=== PATIENT | female | born 1965 | race Caucasian/White ===

== ENCOUNTER 2017-11-07 00:52 | Observation (INO) | payer OTHER ==
[2017-11-07] MEDS ORDERED: Sodium Chloride 0.9% 10 ML Syringe FLUSH PRN (01:13)
[2017-11-07] MEDS ORDERED: Sodium Chloride 0.9% 1,000 ML IV STA (01:13)
[2017-11-07] MEDS ORDERED: Ondansetron 4 MG/2 ML SDV IVPUSH ONE ×2 (01:15→02:05)
[2017-11-07] MEDS ORDERED: HYDROmorphone 0.5 MG/0.5 ML SYRINGE IVPUSH ONE ×2 (01:15→04:03)
[2017-11-07] MEDS ORDERED: Promethazine 25 MG in Sodium Chloride 0.9% 50 ML IV ONE (02:25)
--- NOTE | 2017-11-07 02:54 | EDM.PDOC ---
ED HPI GENERAL MEDICAL PROBLEM - General Chief Complaint: Abdominal Pain Stated Complaint: ABDOMINAL PAIN Time Seen by Provider: 11/07/17 01:09 Source of Information: Reports: Patient, Family History Limitations: Reports: No Limitations - History of Present Illness INITIAL COMMENTS - FREE TEXT/NARRATIVE: The patient presents with lower abdominal pain. This started about 6 hours before arrival. The pain has increased. She has nausea and vomiting and she cannot keep anything down. She may have had a little diarrhea. She as no fever or chills. She has no chest pain or shortness of breath. She has no history of surgeries. She still has her appendix and gallbladder. She did not eat any bad food that she knows of and she has not been around anyone who is sick. Onset: Gradual Duration: Hour(s): (6) Location: Reports: Abdomen Quality: Reports: Sharp Severity: Severe Improves with: Reports: None Worsens with: Reports: None Associated Symptoms: Reports: Nausea/Vomiting. Denies: Chest Pain, Fever/Chills , Headaches, Shortness of Breath Bilateral Lower Abdomen Pain Score (Numeric/FACES): 8 - Related Data Allergies Allergy/AdvReac Type Severity Reaction Status Date / Time No Known Allergies Allergy Verified 11/07/17 00:57 Home Meds: Home Meds FLUoxetine HCl [Fluoxetine] 20 mg PO DAILY 11/07/17 [History] Past Medical History Gastrointestinal History: Reports: Other (See Below) Other Gastrointestinal History: "colon infection" Social & Family History - Tobacco Use Smoking Status *Q: Never Smoker - Caffeine Use Caffeine Use: Reports: Coffee - Recreational Drug Use Recreational Drug Use: No ED ROS GENERAL - Review of Systems Review Of Systems: See Below Constitutional: Reports: No Symptoms, Weight Gain Respiratory: Reports: No Symptoms Cardiovascular: Reports: No Symptoms Endocrine: Reports: No Symptoms GI/Abdominal: Reports: Abdominal Pain, Diarrhea, Nausea, Vomiting : Reports: No Symptoms Musculoskeletal: Reports: No Symptoms ED EXAM, GI/ABD - Physical Exam Exam: See Below Exam Limited By: No Limitations General Appearance: Alert, Moderate Distress Ears: Normal External Exam Nose: Normal Inspection Head: Atraumatic, Normocephalic Neck: Normal Inspection Respiratory/Chest: No Respiratory Distress, Lungs Clear, Normal Breath Sounds Cardiovascular: Regular Rate, Rhythm, No Edema, No Murmur GI/Abdominal Exam: Soft, No Organomegaly, No Mass, Tender (Moderate tenderness to the lower abdomen) Course - Vital Signs Last Recorded V/S: Last Vital Signs Temp 97.8 F 11/07/17 00:58 Pulse 67 11/07/17 00:58 Resp 20 11/07/17 00:58 BP 157/87 H 11/07/17 00:58 Pulse Ox 100 11/07/17 00:58 - Orders/Labs/Meds Orders: Active Orders 24 hr Category Date Time Status Peripheral IV Care [RC] . DIRECTED Care 11/07/17 01:13 Active Abdomen Pelvis w Cont [CT] Stat Exams 11/07/17 01:13 Taken UA W/MICROSCOPIC [URIN] Stat Lab 11/07/17 01:50 Ordered Sodium Chloride 0.9% [Saline Flush] Med 11/07/17 01:13 Active 10 ml FLUSH ASDIRECTED PRN cefOXitin [Mefoxin in Dextrose,Iso-Osm 2 GM/50 ML] 2 gm Med 11/07/17 04:38 Ordered Premix Bag 1 bag IV ONETIME ED Antiemetic Medication Reflex [OM.PC] Stat Oth 11/07/17 01:13 Ordered Peripheral IV Insertion Adult [OM.PC] Stat Oth 11/07/17 01:13 Ordered Medication Orders Sodium Chloride (Saline Flush) 10 ml FLUSH ASDIRECTED PRN PRN Reason: Keep Vein Open Last Admin: 11/07/17 01:22 Dose: 10 ml Labs: Laboratory Tests 11/07/17 11/07/17 11/07/17 Range/Units 01:00 01:00 01:50 WBC 17.14 H (3.98-10.04) K/mm3 RBC 4.44 (3.98-5.22) M/mm3 Hgb 13.8 (11.2-15.7) gm/L Hct 40.0 (34.1-44.9) % MCV 90.1 (79.4-94.8) fl MCH 31.1 (25.6-32.2) pg MCHC 34.5 (32.2-35.5) g/dl RDW Std Deviation 41.5 (36.4-46.3) fL Plt Count 305 (182-369) K/mm3 MPV 11.1 (9.4-12.3) fl Neut % (Auto) 72.3 H (34.0-71.1) % Lymph % (Auto) 20.1 (19.3-51.7) % [place] % (Auto) 6.2 (4.7-12.5) % Eos % (Auto) 0.8 (0.7-5.8) Baso % (Auto) 0.2 (0.1-1.2) % Neut # (Auto) 12.41 H (1.56-6.13) K/mm3 Lymph # (Auto) 3.44 (1.18-3.74) K/mm3 [place] # (Auto) 1.06 H (0.24-0.36) K/mm3 Eos # (Auto) 0.14 (0.04-0.36) K/mm3 Baso # (Auto) 0.03 (0.01-0.08) K/mm3 Sodium 140 (136-145) mEq/L Potassium 4.0 (3.5-5.1) mEq/L Chloride 101 (98-107) mEq/L Carbon Dioxide 26 (21-32) mEq/L Anion Gap 17.0 H (5-15) BUN 15 (7-18) mg/dL Creatinine 0.9 (0.55-1.02) mg/dL Est Cr Clr Drug Dosing 72.92 mL/min Estimated GFR (MDRD) > 60 (>60) mL/min BUN/Creatinine Ratio 16.7 (14-18) Glucose 153 H (74-106) mg/dL Calcium 10.0 (8.5-10.1) mg/dL Total Bilirubin 0.6 (0.2-1.0) mg/dL AST 29 (15-37) U/L ALT 50 (14-59) U/L Alkaline Phosphatase 75 (46-116) U/L Total Protein 8.3 H (6.4-8.2) g/dl Albumin 4.5 (3.4-5.0) g/dl Globulin 3.8 gm/dL Albumin/Globulin Ratio 1.2 (1-2) Lipase 146 (73-393) U/L Urine Color Yellow (Yellow) Urine Appearance Clear (Clear) Urine pH 8.5 H (5.0-8.0) Ur Specific [place] 1.020 (1.005-1.030) Urine Protein 1+ H (Negative) Urine Glucose (UA) Negative (Negative) Urine Ketones 3+ H (Negative) Urine Occult Blood Negative (Negative) Urine Nitrite Negative (Negative) Urine Bilirubin Negative (Negative) Urine Urobilinogen 0.2 (0.2-1.0) Ur Leukocyte Esterase Negative (Negative) Urine RBC 0-5 (0-5) /hpf Urine WBC 0-5 (0-5) /hpf Ur Epithelial Cells 0-5 (0-5) /hpf Amorphous Sediment Moderate H (NOT SEEN) /hpf Urine Bacteria Few (FEW) /hpf Urine Mucus Not seen (FEW) /hpf Meds: Medications Generic Name Dose Route Start Last Admin Trade Name Freq PRN Reason Stop Dose Admin Sodium Chloride 10 ml 11/07/17 01:13 11/07/17 01:22 Saline Flush FLUSH 10 ml ASDIRECTED PRN Administration Keep Vein Open Discontinued Medications Generic Name Dose Route Start Last Admin Trade Name Freq PRN Reason Stop Dose Admin Hydromorphone HCl 0.5 mg 11/07/17 01:15 11/07/17 01:23 Dilaudid IVPUSH 11/07/17 01:16 0.5 mg ONETIME ONE Administration Hydromorphone HCl 0.5 mg 11/07/17 04:03 11/07/17 04:07 Dilaudid IVPUSH 11/07/17 04:04 0.5 mg ONETIME ONE Administration Sodium Chloride 1,000 mls @ 1,000 mls/hr 11/07/17 01:13 11/07/17 01:22 Normal Saline IV 11/07/17 02:12 1,000 mls/hr .BOLUS STA Administration Promethazine HCl 25 mg/ Sodium 51 mls @ 100 mls/hr 11/07/17 02:25 11/07/17 02 :32 Chloride IV 11/07/17 02:55 100 mls/hr ONETIME ONE Administration Ondansetron HCl 4 mg 11/07/17 01:15 11/07/17 01:22 Zofran IVPUSH 11/07/17 01:16 4 mg ONETIME ONE Administration Ondansetron HCl 4 mg 11/07/17 02:05 11/07/17 02:09 Zofran IVPUSH 11/07/17 02:06 4 mg ONETIME ONE Administration - Re-Assessments/Exams Free Text/Narrative Re-Assessment/Exam: 11/07/17 02:53 I ordered an IV NS 1L bolus, zofran 4mg IV, dilaudid 0.5mg IV, labs, UA and a CT of her abdomen and pelvis. 11/07/17 04:43 Her WBC is elevated at 17.14. Her anion gap was elevated at 17. Her glucose was 153. Her lipase was negative. Her UA shows no UTI. She required more zofran and phenergan for the nausea and more dilaudid for pain. Her CT shows the appendix appears somewhat questionably prominent especially at its distal end with suggestion of adjacent fat stranding, which may indicate early appendicitis. Her pain is now in the RLQ. She has early appendicitis. I called Dr Calhoun and he will come see the patient. I have ordered some cefitin 2 grams IV. Departure - Departure Time of Disposition: 04:50 Disposition: Admitted As Inpatient 65 Condition: Fair Clinical Impression: Appendicitis Qualifiers: Appendicitis type: acute appendicitis Acute appendicitis type: with localized peritonitis Qualified Code(s): K35.3 - Acute appendicitis with localized peritonitis - Discharge Information Referrals: Salome Huston MD [Primary Care Provider] - Forms: ED Department Discharge - My Orders Last 24 Hours: My Active Orders 11/07/17 01:13 Peripheral IV Care [RC] . DIRECTED Abdomen Pelvis w Cont [CT] Stat Sodium Chloride 0.9% [Saline Flush] 10 ml FLUSH ASDIRECTED PRN ED Antiemetic Medication Reflex [OM.PC] Stat Peripheral IV Insertion Adult [OM.PC] Stat 11/07/17 01:50 UA W/MICROSCOPIC [URIN] Stat 11/07/17 04:38 cefOXitin [Mefoxin in Dextrose,Iso-Osm 2 GM/50 ML] 2 gm Premix Bag 1 bag IV ONETIME - Assessment/Plan Last 24 Hours: My Active Orders 11/07/17 01:13 Peripheral IV Care [RC] . DIRECTED Abdomen Pelvis w Cont [CT] Stat Sodium Chloride 0.9% [Saline Flush] 10 ml FLUSH ASDIRECTED PRN ED Antiemetic Medication Reflex [OM.PC] Stat Peripheral IV Insertion Adult [OM.PC] Stat 11/07/17 01:50 UA W/MICROSCOPIC [URIN] Stat 11/07/17 04:38 cefOXitin [Mefoxin in Dextrose,Iso-Osm 2 GM/50 ML] 2 gm Premix Bag 1 bag IV ONETIME
[2017-11-07] MEDS ORDERED: cefOXitin 2 GM in Premix Bag 1 BAG IV ONE (04:38)
--- NOTE | 2017-11-07 05:25 | PCM.HP ---
H&P History of Present Illness - General Date of Service: 11/07/17 Admit Problem/Dx: acute appendicitis Source of Information: Patient History Limitations: Reports: No Limitations - History of Present Illness Initial Comments - Free Text/Narative: 52 yo female, presents with abdominal pain that started about 12 hours ago. Pain was initially all over the abdomen, but now migrated to the RLQ. Pain has been associated with nausea and multiple episodes of emesis. Denies fevers/chills. Denies diarrhea/constipation. Last meal was 12 hours ago. Bilateral Lower Abdomen Pain Score (Numeric/FACES): 8 - Related Data Allergies/Adverse Reactions: Allergies Allergy/AdvReac Type Severity Reaction Status Date / Time No Known Allergies Allergy Verified 11/07/17 00:57 Home Medications: Home Meds FLUoxetine HCl [Fluoxetine] 20 mg PO DAILY 11/07/17 [History] Past Medical History Gastrointestinal History: Reports: Other (See Below) Other Gastrointestinal History: "colon infection" Psychiatric History: Reports: Depression - Past Surgical History Female Surgical History: Reports: Other (See Below) (BLADDER SLING PROCEDURE (OVER 10 YEARS AG). SURGERY WAS TRANSVAGINAL. NO PRIOR ABDOMINAL OPERATIONS.) Social & Family History - Family History Family Medical History: Noncontributory - Tobacco Use Smoking Status *Q: Never Smoker - Caffeine Use Caffeine Use: Reports: Coffee - Recreational Drug Use Recreational Drug Use: No - Living Situation & Occupation Living situation: Reports: , with Family (LIVES WITH [place]. KIDS ARE GROWN-UP AND LIVE OUTSIDE THE HOUSE.) H&P Review of Systems - Review of Systems: Review Of Systems: ROS reveals no pertinent complaints other than HPI. Exam - Exam Exam: See Below - Vital Signs Vital Signs: Last Vital Signs Temp 36.6 C 11/07/17 00:58 Pulse 67 11/07/17 00:58 Resp 20 11/07/17 00:58 BP 157/87 H 11/07/17 00:58 Pulse Ox 100 11/07/17 00:58 Weight: 90.718 kg - Exam General: Alert, Oriented, Cooperative HEENT: Conjunctiva Clear. No: Scleral Icterus Lungs: Clear to Auscultation, Normal Respiratory Effort Cardiovascular: Regular Rate, Regular Rhythm GI/Abdominal Exam: Soft, Tender (TENDER IN THE RLQ. NO PERCUSSION TENDERNESS.) Extremities: Normal Inspection Skin: Warm, Dry, Intact - Patient Data Lab Results Last 24 hrs: Laboratory Results - last 24 hr 11/07/17 11/07/17 11/07/17 Range/Units 01:00 01:00 01:50 WBC 17.14 H (3.98-10.04) K/mm3 RBC 4.44 (3.98-5.22) M/mm3 Hgb 13.8 (11.2-15.7) gm/L Hct 40.0 (34.1-44.9) % MCV 90.1 (79.4-94.8) fl MCH 31.1 (25.6-32.2) pg MCHC 34.5 (32.2-35.5) g/dl RDW Std Deviation 41.5 (36.4-46.3) fL Plt Count 305 (182-369) K/mm3 MPV 11.1 (9.4-12.3) fl Neut % (Auto) 72.3 H (34.0-71.1) % Lymph % (Auto) 20.1 (19.3-51.7) % [place] % (Auto) 6.2 (4.7-12.5) % Eos % (Auto) 0.8 (0.7-5.8) Baso % (Auto) 0.2 (0.1-1.2) % Neut # (Auto) 12.41 H (1.56-6.13) K/mm3 Lymph # (Auto) 3.44 (1.18-3.74) K/mm3 [place] # (Auto) 1.06 H (0.24-0.36) K/mm3 Eos # (Auto) 0.14 (0.04-0.36) K/mm3 Baso # (Auto) 0.03 (0.01-0.08) K/mm3 Sodium 140 (136-145) mEq/L Potassium 4.0 (3.5-5.1) mEq/L Chloride 101 (98-107) mEq/L Carbon Dioxide 26 (21-32) mEq/L Anion Gap 17.0 H (5-15) BUN 15 (7-18) mg/dL Creatinine 0.9 (0.55-1.02) mg/dL Est Cr Clr Drug Dosing 72.92 mL/min Estimated GFR (MDRD) > 60 (>60) mL/min BUN/Creatinine Ratio 16.7 (14-18) Glucose 153 H (74-106) mg/dL Calcium 10.0 (8.5-10.1) mg/dL Total Bilirubin 0.6 (0.2-1.0) mg/dL AST 29 (15-37) U/L ALT 50 (14-59) U/L Alkaline Phosphatase 75 (46-116) U/L Total Protein 8.3 H (6.4-8.2) g/dl Albumin 4.5 (3.4-5.0) g/dl Globulin 3.8 gm/dL Albumin/Globulin Ratio 1.2 (1-2) Lipase 146 (73-393) U/L Urine Color Yellow (Yellow) Urine Appearance Clear (Clear) Urine pH 8.5 H (5.0-8.0) Ur Specific [place] 1.020 (1.005-1.030) Urine Protein 1+ H (Negative) Urine Glucose (UA) Negative (Negative) Urine Ketones 3+ H (Negative) Urine Occult Blood Negative (Negative) Urine Nitrite Negative (Negative) Urine Bilirubin Negative (Negative) Urine Urobilinogen 0.2 (0.2-1.0) Ur Leukocyte Esterase Negative (Negative) Urine RBC 0-5 (0-5) /hpf Urine WBC 0-5 (0-5) /hpf Ur Epithelial Cells 0-5 (0-5) /hpf Amorphous Sediment Moderate H (NOT SEEN) /hpf Urine Bacteria Few (FEW) /hpf Urine Mucus Not seen (FEW) /hpf Result Diagrams: 11/07/17 01:00 11/07/17 01:00 Royal Results Last 24 hrs: CT ABD/PELVIS WITH IV CONTRAST: THICKENED AND DILATED APPENDICEAL TIP. Problem List Initiated/Reviewed/Updated: Yes Orders Last 24hrs: Active Orders 24 hr Category Date Time Status Peripheral IV Care [RC] . DIRECTED Care 11/07/17 01:13 Active Abdomen Pelvis w Cont [CT] Stat Exams 11/07/17 01:13 Taken UA W/MICROSCOPIC [URIN] Stat Lab 11/07/17 01:50 Ordered Sodium Chloride 0.9% [Saline Flush] Med 11/07/17 01:13 Active 10 ml FLUSH ASDIRECTED PRN ED Antiemetic Medication Reflex [OM.PC] Stat Oth 11/07/17 01:13 Ordered Peripheral IV Insertion Adult [OM.PC] Stat Oth 11/07/17 01:13 Ordered Medication Orders Sodium Chloride (Saline Flush) 10 ml FLUSH ASDIRECTED PRN PRN Reason: Keep Vein Open Last Admin: 11/07/17 01:22 Dose: 10 ml Assessment/Plan Comment:: 52 yo female, h/o depression, presents with acute appendicitis. - Admit, NPO, IV fluids. - IV cefoxitin. - Patient was consented for laparoscopic appendectomy, possible open. Indications, risks, and benefits were discussed in detail. Risks include bleeding, infection, damage to surrounding structures, need for additional procedures, DVT/PE, KS, CVA, and . - Plan for urgent surgery today. - SCD's for VTE prophylaxis. Aric Adamson M.D., F.A.C.S. General Surgery Pager: [phone]
[2017-11-07] MEDS ORDERED: HYDROmorphone 0.5 MG/0.5 ML SYRINGE IVPUSH PRN (06:04)
[2017-11-07] MEDS ORDERED: Ondansetron 4 MG/2 ML SDV IVPUSH PRN ×2 (06:14→09:09)
--- NOTE | 2017-11-07 07:25 | PCM.PREANE ---
Preanesthetic Assessment - Anesthesia/Transfusion/Family Hx Anesthesia History: Prior Anesthesia Without Reaction Family History of Anesthesia Reaction: No Transfusion History: No Prior Transfusion(s) Intubation History: Unknown - Review of Systems General: No Symptoms Pulmonary: No Symptoms Cardiovascular: No Symptoms Gastrointestinal: Abdominal Pain, Nausea, Vomiting Neurological: No Symptoms Other: Reports: None, Depression - Physical Assessment NPO Status Date: 11/07/17 NPO Status Time: 02:30 Pulse: 41 O2 Sat by Pulse Oximetry: 95 Respiratory Rate: 18 Blood Pressure: 124/65 Temperature: 36.7 C Vital Signs: Last Vital Signs Temp 36.7 C 11/07/17 05:56 Pulse 41 L 11/07/17 05:56 Resp 18 11/07/17 05:56 BP 124/65 11/07/17 05:56 Pulse Ox 95 11/07/17 05:56 Height: 1.73 m Weight: 90.718 kg ASA Class: 2E Mental Status: Alert & Oriented x3 Airway Class: Mallampati = 2 Dentition: Reports: Normal Dentition, Caries Thyro-Mental Finger Breadths: 3 Mouth Opening Finger Breadths: 3 ROM/Head Extension: Full Lungs: Clear to Auscultation, Normal Respiratory Effort Cardiovascular: Regular Rate, Regular Rhythm, No Murmurs - Lab Values: Laboratory Last Values WBC 17.14 K/mm3 (3.98-10.04) H 11/07/17 01:00 RBC 4.44 M/mm3 (3.98-5.22) 11/07/17 01:00 Hgb 13.8 gm/L (11.2-15.7) 11/07/17 01:00 Hct 40.0 % (34.1-44.9) 11/07/17 01:00 MCV 90.1 fl (79.4-94.8) 11/07/17 01:00 MCH 31.1 pg (25.6-32.2) 11/07/17 01:00 MCHC 34.5 g/dl (32.2-35.5) 11/07/17 01:00 RDW Std Deviation 41.5 fL (36.4-46.3) 11/07/17 01:00 Plt Count 305 K/mm3 (182-369) 11/07/17 01:00 MPV 11.1 fl (9.4-12.3) 11/07/17 01:00 Neut % (Auto) 72.3 % (34.0-71.1) H 11/07/17 01:00 Lymph % (Auto) 20.1 % (19.3-51.7) 11/07/17 01:00 [place] % (Auto) 6.2 % (4.7-12.5) 11/07/17 01:00 Eos % (Auto) 0.8 (0.7-5.8) 11/07/17 01:00 Baso % (Auto) 0.2 % (0.1-1.2) 11/07/17 01:00 Neut # (Auto) 12.41 K/mm3 (1.56-6.13) H 11/07/17 01:00 Lymph # (Auto) 3.44 K/mm3 (1.18-3.74) 11/07/17 01:00 [place] # (Auto) 1.06 K/mm3 (0.24-0.36) H 11/07/17 01:00 Eos # (Auto) 0.14 K/mm3 (0.04-0.36) 11/07/17 01:00 Baso # (Auto) 0.03 K/mm3 (0.01-0.08) 11/07/17 01:00 Sodium 140 mEq/L (136-145) 11/07/17 01:00 Potassium 4.0 mEq/L (3.5-5.1) 11/07/17 01:00 Chloride 101 mEq/L (98-107) 11/07/17 01:00 Carbon Dioxide 26 mEq/L (21-32) 11/07/17 01:00 Anion Gap 17.0 (5-15) H 11/07/17 01:00 BUN 15 mg/dL (7-18) 11/07/17 01:00 Creatinine 0.9 mg/dL (0.55-1.02) 11/07/17 01:00 Est Cr Clr Drug Dosing 72.92 mL/min 11/07/17 01:00 Estimated GFR (MDRD) > 60 mL/min (>60) 11/07/17 01:00 BUN/Creatinine Ratio 16.7 (14-18) 11/07/17 01:00 Glucose 153 mg/dL (74-106) H 11/07/17 01:00 Calcium 10.0 mg/dL (8.5-10.1) 11/07/17 01:00 Total Bilirubin 0.6 mg/dL (0.2-1.0) 11/07/17 01:00 AST 29 U/L (15-37) 11/07/17 01:00 ALT 50 U/L (14-59) 11/07/17 01:00 Alkaline Phosphatase 75 U/L (46-116) 11/07/17 01:00 Total Protein 8.3 g/dl (6.4-8.2) H 11/07/17 01:00 Albumin 4.5 g/dl (3.4-5.0) 11/07/17 01:00 Globulin 3.8 gm/dL 11/07/17 01:00 Albumin/Globulin Ratio 1.2 (1-2) 11/07/17 01:00 Lipase 146 U/L (73-393) 11/07/17 01:00 Urine Color Yellow (Yellow) 11/07/17 01:50 Urine Appearance Clear (Clear) 11/07/17 01:50 Urine pH 8.5 (5.0-8.0) H 11/07/17 01:50 Ur Specific [place] 1.020 (1.005-1.030) 11/07/17 01:50 Urine Protein 1+ (Negative) H 11/07/17 01:50 Urine Glucose (UA) Negative (Negative) 11/07/17 01:50 Urine Ketones 3+ (Negative) H 11/07/17 01:50 Urine Occult Blood Negative (Negative) 11/07/17 01:50 Urine Nitrite Negative (Negative) 11/07/17 01:50 Urine Bilirubin Negative (Negative) 11/07/17 01:50 Urine Urobilinogen 0.2 (0.2-1.0) 11/07/17 01:50 Ur Leukocyte Esterase Negative (Negative) 11/07/17 01:50 Urine RBC 0-5 /hpf (0-5) 11/07/17 01:50 Urine WBC 0-5 /hpf (0-5) 11/07/17 01:50 Ur Epithelial Cells 0-5 /hpf (0-5) 11/07/17 01:50 Amorphous Sediment Moderate /hpf (NOT SEEN) H 11/07/17 01:50 Urine Bacteria Few /hpf (FEW) 11/07/17 01:50 Urine Mucus Not seen /hpf (FEW) 11/07/17 01:50 Above labs reviewed and noted and within acceptable ranges to proceed with appendectomy. - Allergies Allergies/Adverse Reactions: Allergies Allergy/AdvReac Type Severity Reaction Status Date / Time No Known Allergies Allergy Verified 11/07/17 00:57 - Anesthesia Plan Pre-Op Medication Ordered: None - Acknowledgements Anesthesia Type Planned: General Anesthesia Pt an Appropriate Candidate for the Planned Anesthesia: Yes Alternatives and Risks of Anesthesia Discussed w Pt/Guardian: Yes Pt/Guardian Understands and Agrees with Anesthesia Plan: Yes PreAnesthesia Questionnaire Gastrointestinal History: Reports: Other (See Below) Other Gastrointestinal History: "colon infection" Psychiatric History: Reports: Depression - Past Surgical History Female Surgical History: Reports: Other (See Below) (BLADDER SLING PROCEDURE (OVER 10 YEARS AG). SURGERY WAS TRANSVAGINAL. NO PRIOR ABDOMINAL OPERATIONS.) - SUBSTANCE USE Smoking Status *Q: Never Smoker Recreational Drug Use History: No - HOME MEDS Home Medications: Home Meds FLUoxetine HCl [Fluoxetine] 20 mg PO DAILY 11/07/17 [History] - CURRENT (IN HOUSE) MEDS Current Meds: Current Medications Hydromorphone HCl (Dilaudid) 0.5 mg IVPUSH Q6HR PRN PRN Reason: Pain Last Admin: 11/07/17 06:26 Dose: 0.5 mg Cefoxitin Sodium 2 gm/ Premix 50 mls @ 100 mls/hr IV Q6HR VICKY Ondansetron HCl (Zofran) 4 mg IVPUSH Q6H PRN PRN Reason: Nausea Sodium Chloride (Saline Flush) 10 ml FLUSH ASDIRECTED PRN PRN Reason: Keep Vein Open Last Admin: 11/07/17 01:22 Dose: 10 ml Discontinued Medications Hydromorphone HCl (Dilaudid) 0.5 mg IVPUSH ONETIME ONE Stop: 11/07/17 01:16 Last Admin: 11/07/17 01:23 Dose: 0.5 mg Hydromorphone HCl (Dilaudid) 0.5 mg IVPUSH ONETIME ONE Stop: 11/07/17 04:04 Last Admin: 11/07/17 04:07 Dose: 0.5 mg Sodium Chloride (Normal Saline) 1,000 mls @ 1,000 mls/hr IV .BOLUS STA Stop: 11/07/17 02:12 Last Admin: 11/07/17 01:22 Dose: 1,000 mls/hr Promethazine HCl 25 mg/ Sodium (Chloride) 51 mls @ 100 mls/hr IV ONETIME ONE Stop: 11/07/17 02:55 Last Admin: 11/07/17 02:32 Dose: 100 mls/hr Cefoxitin Sodium 2 gm/ Premix 50 mls @ 100 mls/hr IV ONETIME ONE Stop: 11/07/17 05:07 Last Admin: 11/07/17 04:56 Dose: 100 mls/hr Ondansetron HCl (Zofran) 4 mg IVPUSH ONETIME ONE Stop: 11/07/17 01:16 Last Admin: 11/07/17 01:22 Dose: 4 mg Ondansetron HCl (Zofran) 4 mg IVPUSH ONETIME ONE Stop: 11/07/17 02:06 Last Admin: 11/07/17 02:09 Dose: 4 mg
[2017-11-07] MEDS ORDERED: Lidocaine 1% with EPINEPHrine 1:100,000 20 ML MDV ONE (07:30)
[2017-11-07] MEDS ORDERED: Bupivacaine 0.5% 30 ML SDV ONE (07:30)
[2017-11-07] MEDS ORDERED: fentaNYL 250 MCG/5 ML SDV ONE (07:41)
[2017-11-07] MEDS ORDERED: Midazolam 1 MG/ML 2 ML SDV ONE (07:41)
[2017-11-07] MEDS ORDERED: Propofol 200 MG/20 ML SDV ONE (07:41)
[2017-11-07] MEDS ORDERED: Ondansetron 4 MG/2 ML SDV ONE (07:43)
[2017-11-07] MEDS ORDERED: Dexamethasone 4 MG/ML SDV ONE (07:43)
[2017-11-07] MEDS ORDERED: Rocuronium 50 MG/5 ML Vial ONE (07:43)
[2017-11-07] MEDS ORDERED: Lidocaine 1% 4 ML ONE (07:43)
--- NOTE | 2017-11-07 08:45 | CT ---
CT abdomen and pelvis Technique: Multiple axial sections were obtained from above the dome of the diaphragm inferiorly through the pubic symphysis. Intravenous and a small amount of oral contrast is noted. Delayed images were obtained through the bladder. Comparison: No prior abdominal imaging. Findings: Appendix is not completely normal in appearance. Proximal appendix measures normal at 7 mm. Mid to distal appendix measures about 1.2 cm which is abnormal. Very distal tip of the appendix measures normal at 7 mm. Equivocal inflammation off the tip of the appendix is seen. Small amount of air is noted within the appendix. Visualized lung bases show nothing acute. Liver shows no focal parenchymal abnormality. Minimal fatty infiltration is seen. Spleen appears within normal limits. Adrenal glands show no nodule. Pancreas is within normal limits. Gallbladder contains no calcified gallstones. Kidneys show symmetric contrast enhancement without hydronephrosis or mass. Aorta shows no aneurysmal dilatation. No retroperitoneal adenopathy or mesenteric abnormalities are seen. Diverticuli are seen within the sigmoid colon without inflammatory change of diverticulitis. No free fluid is seen. Delayed images show contrast within the distal ureters and within the bladder. Bone window settings show degenerative change within the apophyseal joints within the lower lumbar spine. Mild disc space narrowing is seen within the lower thoracic spine. Impression: 1. Slightly abnormal appendix. Difficult to exclude mild early appendicitis or mild chronic appendicitis. Please correlate with the patient's symptoms. 2. Other incidental findings as noted above. Diagnostic code #5 Agree with preliminary report issued by [employer] ([employer] preliminary report dictated on 11/07/17, 5:29 AM Central Time)
[2017-11-07] MEDS ORDERED: Neostigmine Methylsulfate 1 MG/ML 5 ML Syringe ONE (08:48)
--- NOTE | 2017-11-07 09:01 | PCM.POSTAN ---
POST ANESTHESIA ASSESSMENT - MENTAL STATUS Mental Status: Alert - VITAL SIGNS Pulse Rate: 68 SaO2: 96 Resp Rate: 12 Blood Pressure: 111/62 Temperature: 36.4 C - RESPIRATORY Respiratory Status: Respiratory Rate WNL, Airway Patent, O2 Saturation Stable, Supplemental Oxygen - CARDIOVASCULAR CV Status: Pulse Rate WNL, Blood Pressure Stable - GASTROINTESTINAL GI Status: No Symptoms - POST OP HYDRATION Hydration Status: Adequate & Stable
[2017-11-07] MEDS ORDERED: Meperidine PF 50 MG/ML Syringe IVPUSH PRN (09:09)
[2017-11-07] MEDS ORDERED: fentaNYL 100 MCG/2 ML SDV IVPUSH PRN (09:09)
[2017-11-07] MEDS ORDERED: diphenhydrAMINE 50 MG/ML SDV IVPUSH PRN (09:09)
--- NOTE | 2017-11-07 09:09 | PCM.POSTAN ---
POST ANESTHESIA ASSESSMENT - MENTAL STATUS Mental Status: Somnolent - VITAL SIGNS Pulse Rate: 85 SaO2: 97 Resp Rate: 21 Blood Pressure: 124/90 Temperature: 36.7 C - RESPIRATORY Respiratory Status: Respiratory Rate WNL, Airway Patent, O2 Saturation Stable, Supplemental Oxygen - CARDIOVASCULAR CV Status: Pulse Rate WNL, Blood Pressure Stable - GASTROINTESTINAL GI Status: No Symptoms - PAIN Pain Score: 0 - POST OP HYDRATION Hydration Status: Adequate & Stable
--- NOTE | 2017-11-07 09:10 | PCM.OPNOTE ---
- General Post-Op/Procedure Note Date of Surgery/Procedure: 11/07/17 Operative Procedure(s): laparoscopic appendectomy Findings: Acute nonsuppurative appendicitis Pre Op Diagnosis: acute appendicitis Post-Op Diagnosis: acute appendicitis Anesthesia Technique: General ET Tube Primary Surgeon: Aric Adamsno Anesthesia Provider: Torri Figueroa Fluid Replacement, Intraop: 1,200 (crystalloid) Output, Urine Amount: 150 EBL in mLs: 10 Complications: None Condition: Good Free Text/Narrative:: Indications for surgery: The patient is a 52 yo female who presents with 12 hours of abdominal pain and tenderness in the RLQ. CT scan confirms acute appendicitis. The patient was consented for laparosocpic appendectomy, possible open. possible other indicated procedures. Indications, risks, and benefits were discussed with the patient in detail. Description of procedure: After surgical consent was verified, the patient was brought to the main OR. Anesthesia performed general endotracheal intubation without complications. Appropriate padding and straps were placed. SCD's were on and functioning. Perioperative anitbiotic (cefoxitin IV) was administered. A Tim catheter and OG tube were inserted. A surgical time-out was performed to verify proper patient, proper site, and proper procedure. Local anesthetic (1:1 solution of 1% lidocaine with epinephrine and 0.5% bupivacaine) was injected at Marshall's point in the LUQ. A 5 mm incision was made , and a Veress needle was inserted. The abdomen was insufflated to 15 mmHg without complications. Using the Optview technique, a 5 mm trocar was inserted. The laparoscope was inserted, and there was no evidence of intra-abdominal injury from trocar placement. Additional trocars were placed: a 12 mm trocar in the left lower quadrant and a 5 mm trocar in the suprapubic region. The patient was re-positioned to Trendelenburg with LEFT side down. The appendix was identified and noted to be thickened and inflamed. A window was made in the mesoappendix at the appendiceal base. A 45 mm blue load laparoscopic stapler was used to divide the appendiceal base. A 45 mm white load laparoscopic stapler was used to divide the mesoappendix. The appendix was placed in an Endocatch bag and removed through the 12 mm trocar site. There was bleeding from the mesoappendiceal and appendiceal stump isidro lines. Hemostasis was achieved with multiple clips. All blood in the peritoneal cavity was suctioned out. The pelvis was inspected, and there were no abnormalities. The 12 mm trocar site was closed with an interrupted 0-Vicryl suture via a transfascial suture passer. The suprapubic trocar was removed under direct visualization, and the abdomen was allowed to desufflate. The remaining LUQ trocar was removed. The skin was closed with interrrupted 4-0 Monocryl and covered with Dermabond. The patient tolerated the procedure well, was extubated, and transported to the PACU in stable condition. At the end of the case, all needle, instrument, and gauze counts were correct. The Tim catheter and OG tube were removed. I was presented and scrubbed for the entirety of the case. Aric Adamson M.D., F.A.C.S. General Surgery Pager: [phone]
[2017-11-07] MEDS ORDERED: HYDROmorphone 0.5 MG/0.5 ML Syringe IVPUSH ONE (09:11)
[2017-11-07] MEDS ORDERED: Ketorolac 30 MG/ML SDV ONE (09:22)
[2017-11-07] MEDS ORDERED: Acetaminophen/oxyCODONE 325-5 MG Tab PO PRN (09:53)
--- NOTE | 2017-11-07 11:00 | PCM48HPAN ---
Post Anesthesia Note - EVALUATION WITHIN 48HRS OF ANESTHETIC Vital Signs in Normal Range: Yes Patient Participated in Evaluation: Yes Respiratory Function Stable: Yes Airway Patent: Yes Cardiovascular Function Stable: Yes Hydration Status Stable: Yes Pain Control Satisfactory: Yes Nausea and Vomiting Control Satisfactory: Yes Mental Status Recovered: Yes
[2017-11-07] MEDS ORDERED: cefOXitin 2 GM in Premix Bag 1 BAG IV SCH (12:00)
--- NOTE | 2017-11-07 16:41 | PCM.SN ---
- Free Text/Narrative Note: To clarify, patient met criteria for observation status. Aric Adamson M.D., F.A.C.S. General Surgery Pager: [phone]
== END 2017-11-07 15:28 | disposition home or self-care (01) ==
LOC: JD.ED 00:52 → JD.MS 05:59
PROVIDERS: ADMIT Student in an Organized Health Care Education/Training Program; ATTEND Student in an Organized Health Care Education/Training Program
DX: K35.3 Acute appendicitis with localized peritonitis (principal); F32.9 Major depressive disorder, single episode, unspecified
CPT/HCPCS: 36415; 44970; 74177; 80053; 81001; 83690; 85025; 96361; 96365; 96367; 96375; 96376; 99285; J0694; J1100; J1170; J1885; J2001; J2250; J2405; J2550; J2710; J3010; J7040; J7050; 00840; 99284; G0378; J2704

== ENCOUNTER 2020-05-23 08:59 | Inpatient (IN) | payer OTHER ==
--- NOTE | 2020-05-23 09:14 | EDM.PDOC ---
ED HPI GENERAL MEDICAL PROBLEM - General Chief Complaint: Abdominal Pain Stated Complaint: ABDOMINAL PAIN Time Seen by Provider: 05/23/20 09:14 Source of Information: Reports: Patient History Limitations: Reports: No Limitations - History of Present Illness INITIAL COMMENTS - FREE TEXT/NARRATIVE: 55-year-old female presents to the ED complaining of diffuse lower abdominal pain gradually worsening over the period of 1 week. She states that she is mildly nauseated as well. She has had H. pylori in the past and often becomes nauseated with eating as of late. She has some concerns that the H. pylori infection may have returned. She states her bowel function has been relatively normal with no blood. No relief of abdominal pain with bowel movement. No diarrhea. No relief of pain with voiding. No dysuria urgency frequency. She knows that she has particular from previous colonoscopy but has no history of diverticulitis. Past surgery is that of an appendectomy done laparoscopically about a year ago. She has been menopausal x5 years. Of note the patient indicates that she did had COVID-19 illness around the middle of March 2020. Onset: Gradual Onset Date: 05/16/20 Duration: Day(s):, Getting Worse Location: Reports: Abdomen (Increasing diffuse left lower quadrant suprapubic abdominal pressure discomfort.) Quality: Reports: Ache Severity: Moderate (6 out of 10 with walking.) Improves with: Reports: Rest Worsens with: Reports: Movement Context: Reports: Other (Regla is occurrence.). Denies: Activity, Exercise (Particularly walking is difficult feels she is not standing fully erect.), Lifting, Sick Contact, Trauma Associated Symptoms: Reports: Fever/Chills, Loss of Appetite, Nausea/Vomiting, Other (Normal bowel function). Denies: No Other Symptoms (Available yesterday.), Confusion, Chest Pain, Cough, cough w sputum, Headaches, Malaise, Rash (Is a with no vomiting), Seizure, Shortness of Breath, Syncope, Weakness Treatments SECTION 8 PROPERTY MANAGER: Reports: Acetaminophen Lower Abdomen Pain Score (Numeric/FACES): 9 - Related Data Allergies Allergy/AdvReac Type Severity Reaction Status Date / Time No Known Allergies Allergy Verified 11/07/17 00:57 Home Meds: Home Meds FLUoxetine HCl [Fluoxetine] 40 mg PO DAILY 11/07/17 [History] Gabapentin [Neurontin] 300 mg PO DAILY 05/23/20 [History] Past Medical History Gastrointestinal History: Reports: Other (See Below) Other Gastrointestinal History: "colon infection" Psychiatric History: Reports: Depression - Infectious Disease History Infectious Disease History: Reports: Other (See Below) (Patient did have COVID- 19 illness diagnosed around 12 April 2020) - Past Surgical History Female Surgical History: Reports: Other (See Below) (BLADDER SLING PROCEDURE (OVER 10 YEARS AG). SURGERY WAS TRANSVAGINAL. NO PRIOR ABDOMINAL OPERATIONS.) Social & Family History - Family History Family Medical History: No Pertinent Family History - Caffeine Use Caffeine Use: Reports: Coffee - Living Situation & Occupation Living situation: Reports: , with Family (LIVES WITH IN [place]. KIDS ARE GROWN-UP AND LIVE OUTSIDE THE HOUSE.) ED ROS GENERAL - Review of Systems Review Of Systems: See Below Constitutional: Reports: Fever, Chills, Malaise, Decreased Appetite. Denies: Weakness, Fatigue, Weight Loss HEENT: Reports: No Symptoms Respiratory: Reports: No Symptoms Cardiovascular: Reports: No Symptoms Endocrine: Reports: Fatigue GI/Abdominal: Reports: Abdominal Pain (History of present illness.), Decreased Appetite, Nausea. Denies: Distension, Flatus, Hematemesis, Hematochezia, Vomiting : Reports: No Symptoms Musculoskeletal: Reports: No Symptoms Skin: Reports: No Symptoms Neurological: Reports: No Symptoms Psychiatric: Reports: No Symptoms Hematologic/Lymphatic: Reports: No Symptoms Immunologic: Reports: No Symptoms ED EXAM, GI/ABD - Physical Exam Exam: See Below Exam Limited By: No Limitations General Appearance: Alert, WD/WN, No Apparent Distress, Other (O2 sats 97% room air) Eyes: Right: Normal Appearance Throat/Mouth: Normal Inspection, Normal Lips, Normal Teeth, Normal Oropharynx Head: Atraumatic, Normocephalic Neck: Normal Inspection, Supple, Non-Tender, Full Range of Motion. No: Lymphadenopathy (L), Lymphadenopathy (R), Thyromegaly Respiratory/Chest: No Respiratory Distress, Lungs Clear, Normal Breath Sounds, No Accessory Muscle Use Cardiovascular: Normal Peripheral Pulses, No Edema, No Gallop, No Murmur, No Rub, Bradycardia GI/Abdominal Exam: Soft, No Organomegaly, No Distention (No tympany to percussion.), No Mass, Pelvis Stable, Guarding, Rebound ( and rebound. Lower quadrant and suprapubically.), Tender (And has marked tenderness on palpation suprapubically and left lower quadrant of the abdomen with guarding), Abnormal Bowel Sounds (Bowel sounds are decreased from the norm.) Back Exam: Normal Inspection, Full Range of Motion. No: CVA Tenderness (L), CVA Tenderness (R) Extremities: Normal Inspection, Normal Range of Motion, Non-Tender, No Pedal Edema Neurological: Alert, Oriented, CN II-XII Intact, Normal Cognition Psychiatric: Normal Affect, Normal Mood Skin Exam: Warm, Dry, Intact, Normal Color, No Rash Course - Vital Signs Last Recorded V/S: Last Vital Signs Temp 36.4 C 05/23/20 09:05 Pulse 57 L 05/23/20 09:05 Resp 16 05/23/20 09:05 BP 119/63 05/23/20 09:05 Pulse Ox 97 05/23/20 09:05 - Orders/Labs/Meds Orders: Active Orders 24 hr Category Date Time Status Abdomen Pelvis w Cont [CT] Stat Exams 05/23/20 09:23 Taken CULTURE BLOOD [BC] Stat Lab 05/23/20 09:50 Received CULTURE BLOOD [BC] Stat Lab 05/23/20 09:55 Received Dextrose 5%-0.9% NaCl [Dextrose 5%-Normal Saline] 1,000 Med 05/23/20 09:30 Active ml IV ASDIRECTED Sodium Chloride 0.9% [Saline Flush] Med 05/23/20 09:45 Active 10 ml FLUSH BOLUS Blood Culture x2 Reflex Set [OM.PC] Stat Oth 05/23/20 09:23 Ordered Medication Orders Dextrose/Sodium Chloride (Dextrose 5%-Normal Saline) 1,000 mls @ 250 mls/hr IV ASDIRECTED VICKY Last Admin: 05/23/20 09:32 Dose: 250 mls/hr Documented by: [email or web address] Sodium Chloride (Saline Flush) 10 ml FLUSH BOLUS VICKY Labs: Laboratory Tests 05/23/20 05/23/20 05/23/20 Range/Units 09:30 09:30 09:50 WBC 14.89 H (3.98-10.04) K/mm3 RBC 4.18 (3.98-5.22) M/mm3 Hgb 12.7 (11.2-15.7) gm/dl Hct 39.7 (34.1-44.9) % MCV 95.0 H D (79.4-94.8) fl MCH 30.4 (25.6-32.2) pg MCHC 32.0 L (32.2-35.5) g/dl RDW Std Deviation 44.3 (36.4-46.3) fL Plt Count 282 (182-369) K/mm3 MPV 10.7 (9.4-12.3) fl Neutrophils % (Manual) 71 H (40-60) % Band Neutrophils % 0 (0-10) % Lymphocytes % (Manual) 18 L (20-40) % Atypical Lymphs % 0 % Monocytes % (Manual) 11 H (2-10) % Eosinophils % (Manual) 0 L (0.7-5.8) % Basophils % (Manual) 0 L (0.1-1.2) Platelet Estimate Adequate RBC Morph Comment Normal Sodium 138 (136-145) mEq/L Potassium 4.1 (3.5-5.1) mEq/L Chloride 102 (98-107) mEq/L Carbon Dioxide 28 (21-32) mEq/L Anion Gap 12.1 (5-15) BUN 10 (7-18) mg/dL Creatinine 0.9 (0.55-1.02) mg/dL Est Cr Clr Drug Dosing 65.34 mL/min Estimated GFR (MDRD) > 60 (>60) mL/min BUN/Creatinine Ratio 11.1 L (14-18) Glucose 101 (74-106) mg/dL Lactic Acid 0.6 (0.4-2.0) mmol/L Calcium 9.1 (8.5-10.1) mg/dL Magnesium 2.1 (1.8-2.4) mg/dl Total Bilirubin 0.7 (0.2-1.0) mg/dL AST 42 H (15-37) U/L ALT 49 (14-59) U/L Alkaline Phosphatase 89 (46-116) U/L C-Reactive Protein 17.3 H* (<1.0) mg/dL Total Protein 7.8 (6.4-8.2) g/dl Albumin 3.7 (3.4-5.0) g/dl Globulin 4.1 gm/dL Albumin/Globulin Ratio 0.9 L (1-2) Lipase 121 (73-393) U/L Urine Color (Yellow) Urine Appearance (Clear) Urine pH (5.0-8.0) Ur Specific Landis (1.005-1.030) Urine Protein (Negative) Urine Glucose (UA) (Negative) Urine Ketones (Negative) Urine Occult Blood (Negative) Urine Nitrite (Negative) Urine Bilirubin (Negative) Urine Urobilinogen (0.2-1.0) Ur Leukocyte Esterase (Negative) Urine RBC (0-5) /hpf Urine WBC (0-5) /hpf Ur Epithelial Cells (0-5) /hpf Urine Bacteria (FEW) /hpf Urine Mucus (FEW) /hpf SARS-CoV-2 RNA (ELISSA) (NEGATIVE) 05/23/20 05/23/20 Range/Units 10:06 12:38 WBC (3.98-10.04) K/mm3 RBC (3.98-5.22) M/mm3 Hgb (11.2-15.7) gm/dl Hct (34.1-44.9) % MCV (79.4-94.8) fl MCH (25.6-32.2) pg MCHC (32.2-35.5) g/dl RDW Std Deviation (36.4-46.3) fL Plt Count (182-369) K/mm3 MPV (9.4-12.3) fl Neutrophils % (Manual) (40-60) % Band Neutrophils % (0-10) % Lymphocytes % (Manual) (20-40) % Atypical Lymphs % % Monocytes % (Manual) (2-10) % Eosinophils % (Manual) (0.7-5.8) % Basophils % (Manual) (0.1-1.2) Platelet Estimate RBC Morph Comment Sodium (136-145) mEq/L Potassium (3.5-5.1) mEq/L Chloride (98-107) mEq/L Carbon Dioxide (21-32) mEq/L Anion Gap (5-15) BUN (7-18) mg/dL Creatinine (0.55-1.02) mg/dL Est Cr Clr Drug Dosing mL/min Estimated GFR (MDRD) (>60) mL/min BUN/Creatinine Ratio (14-18) Glucose (74-106) mg/dL Lactic Acid (0.4-2.0) mmol/L Calcium (8.5-10.1) mg/dL Magnesium (1.8-2.4) mg/dl Total Bilirubin (0.2-1.0) mg/dL AST (15-37) U/L ALT (14-59) U/L Alkaline Phosphatase (46-116) U/L C-Reactive Protein (<1.0) mg/dL Total Protein (6.4-8.2) g/dl Albumin (3.4-5.0) g/dl Globulin gm/dL Albumin/Globulin Ratio (1-2) Lipase (73-393) U/L Urine Color Yellow (Yellow) Urine Appearance Slt cloudy H (Clear) Urine pH 6.0 (5.0-8.0) Ur Specific Landis 1.025 (1.005-1.030) Urine Protein Trace H (Negative) Urine Glucose (UA) Negative (Negative) Urine Ketones Negative (Negative) Urine Occult Blood Trace-intact H (Negative) Urine Nitrite Negative (Negative) Urine Bilirubin 1+ H (Negative) Urine Urobilinogen 1.0 (0.2-1.0) Ur Leukocyte Esterase Negative (Negative) Urine RBC 0-5 (0-5) /hpf Urine WBC 5-10 H (0-5) /hpf Ur Epithelial Cells 5-10 H (0-5) /hpf Urine Bacteria Many H (FEW) /hpf Urine Mucus Many H (FEW) /hpf SARS-CoV-2 RNA (ELISSA) Positive H (NEGATIVE) Meds: Medications Generic Name Dose Route Start Last Admin Trade Name Freq PRN Reason Stop Dose Admin Dextrose/Sodium Chloride 1,000 mls @ 250 mls/hr 05/23/20 09:30 05/23/20 09:32 Dextrose 5%-Normal Saline IV 250 mls/hr ASDIRECTED VICKY Administration Sodium Chloride 10 ml 05/23/20 09:45 Saline Flush FLUSH BOLUS VICKY Discontinued Medications Generic Name Dose Route Start Last Admin Trade Name Freq PRN Reason Stop Dose Admin Hydromorphone HCl 0.5 mg 05/23/20 09:21 05/23/20 09:35 Dilaudid IVPUSH 05/23/20 09:22 0.5 mg ONETIME ONE Administration Hydromorphone HCl 1 mg 05/23/20 11:35 05/23/20 11:42 Dilaudid IVPUSH 05/23/20 11:36 1 mg ONETIME ONE Administration Levofloxacin/Dextrose 750 mg/ 150 mls @ 100 mls/hr 05/23/20 10:23 05/23/20 11:39 Premix IV 05/23/20 11:52 100 mls/hr ONETIME ONE Administration Metronidazole 500 mg/ Premix 100 mls @ 100 mls/hr 05/23/20 12:17 05/23/20 12:42 IV 05/23/20 13:16 100 mls/hr ONETIME ONE Administration Iopamidol 100 ml 05/23/20 09:39 Isovue-300 (61%) IVPUSH 05/23/20 09:40 ONETIME ONE Ondansetron HCl 4 mg 05/23/20 09:21 05/23/20 09:34 Zofran IVPUSH 05/23/20 09:22 4 mg ONETIME ONE Administration Ondansetron HCl 4 mg 05/23/20 12:26 05/23/20 12:42 Zofran IVPUSH 05/23/20 12:27 4 mg ONETIME ONE Administration - Radiology Interpretation Free Text/Narrative:: 55-year-old female presents to the ED with gradually worsening diffuse lower abdominal pain over the last week. Yesterday she developed some fever and chills at home. She has not yet eaten today. She feels nauseated. Bowel movements apparently have been normal. No genitourinary complaints. Examination reveals tenderness left lower quadrant and suprapubically with guarding and mild rebound tenderness. Suspect acute diverticulitis. Plan IV D5 normal saline at 250 mils per hour. We will give Dilaudid 0.5 mg IV with Zofran 4 mg IV for nausea pain relief. She will have routine labs performed including CRP and serum lipase. We will proceed with CT of the abdomen pelvis with oral and IV contrast. - Re-Assessments/Exams Free Text/Narrative Re-Assessment/Exam: 05/23/20 10:23 White count is elevated at 14.89 differential pending. Hemoglobin 12.7 with hematocrit of 39.7 MCV is slightly elevated at 95.0. Platelet count 282,000. Sodium is 138 with a potassium of 4.1. Chloride 102 with a bicarb of 28. Anion gap is 12.1. BUN is 10 with a creatinine of 0.9 and a GFR greater than 60. Glucose is 101. Calcium is 9.1. Magnesium is 2.1. Liver function is essentially normal. C-reactive protein is markedly elevated at 17.3. Total protein was 7.8 with an albumin fraction of 3.7 serum lipase is normal at 121. Urinalysis shows slight cloudy urine trace of protein and trace of occult blood and 1+ bilirubin but no signs of infection. Patient will be started on Levaquin 750 mg IV at this time is clinically she appears to have acute diverticulitis. 05/23/20 11:36 Patient is now complaining of marked increased and left lower abdominal pain. On my review of the CT she does have extensive diverticulitis involving the sigmoid colon. She is currently receiving Levaquin 750 mg IV and the plan will be to follow this with Flagyl 500 mg IV. Tentatively she will require admission to the hospital and I will speak to the on-call hospitalist in this regard. 05/23/20 12:26 Patient reports abdominal pain is somewhat better. She has had a very large bowel movement after seeing the oral contrast. She reports that she is very nauseated this time most likely from the Dilaudid. Will repeat Zofran 4 mg IV. Read of the CT of the abdomen pelvis has been completed. Liver appears to be generous in size with fatty liver evident without intraductal dilatation. Gallbladder is normal with no calcified stones and no ductal dilatation. Pancreas is normal spleen is normal adrenal glands normal kidneys and ureters normal. Stomach and bowel revealed bulky sigmoid diverticulosis. Circumferential thickening of a long segment of the sigmoid colon measuring approximately 10 cm in length with wall edema and pericolonic soft tissue stranding evident. Findings are consistent with acute diverticulitis. Probable contained perforation along the antimesenteric side of the mid segment of affected colon where there is a focal collection of gas and soft tissue thickening measuring approximately 1.3 cm in diameter. This is best seen on axial series 2 image 60. No evidence of bowel obstruction evident. Large amount of stool in the colon. Scattered diverticuli of the upper descending colon and transverse colon. Postoperative changes of the are that of an appendectomy. 05/23/20 13:33 I did speak with on-call hospitalist Dr. Connor uMniz and he will see the patient in consultation. Both he and I decided the patient should be seen in consultation by surgeon manager organizational and I have left a message for Dr. Celsa Vigil who is currently in the OR. She to will see the patient in the emergency room. Patient reports she remains very nauseated. I am therefore going to give her Phenergan 25 mg IV over 15 minutes by mini bag. Dental risk of dystonic reaction interaction with Zofran appreciated. Departure - Departure Time of Disposition: 13:44 Disposition: Admitted As Inpatient 65 Condition: Fair Clinical Impression: Diverticulitis of sigmoid colon Abdominal pain Qualifiers: Abdominal location: left lower quadrant Qualified Code(s): R10.32 - Left lower quadrant pain - Discharge Information *PRESCRIPTION DRUG MONITORING PROGRAM REVIEWED*: Not Applicable *COPY OF PRESCRIPTION DRUG MONITORING REPORT IN PATIENT VIANNEY: Not Applicable Referrals: Salome Huston MD [Primary Care Provider] - Forms: ED Department Discharge Sepsis Event Note (ED) - Evaluation Sepsis Screening Result: No Definite Risk - Focused Exam Vital Signs: Vital Signs Temp Pulse Resp BP Pulse Ox 05/23/20 09:05 36.4 C 57 L 16 119/63 97 - My Orders Last 24 Hours: My Active Orders 05/23/20 09:23 Abdomen Pelvis w Cont [CT] Stat Blood Culture x2 Reflex Set [OM.PC] Stat 05/23/20 09:30 Dextrose 5%-0.9% NaCl [Dextrose 5%-Normal Saline] 1,000 ml IV ASDIRECTED 05/23/20 09:45 Sodium Chloride 0.9% [Saline Flush] 10 ml FLUSH BOLUS 05/23/20 09:50 CULTURE BLOOD [BC] Stat 05/23/20 09:55 CULTURE BLOOD [BC] Stat - Assessment/Plan Last 24 Hours: My Active Orders 05/23/20 09:23 Abdomen Pelvis w Cont [CT] Stat Blood Culture x2 Reflex Set [OM.PC] Stat 05/23/20 09:30 Dextrose 5%-0.9% NaCl [Dextrose 5%-Normal Saline] 1,000 ml IV ASDIRECTED 05/23/20 09:45 Sodium Chloride 0.9% [Saline Flush] 10 ml FLUSH BOLUS 05/23/20 09:50 CULTURE BLOOD [BC] Stat 05/23/20 09:55 CULTURE BLOOD [BC] Stat
[2020-05-23] MEDS ORDERED: Ondansetron 4 MG/2 ML SDV IVPUSH ONE ×2 (09:21→12:26)
[2020-05-23] MEDS ORDERED: HYDROmorphone 0.5 MG/0.5 ML Syringe IVPUSH ONE (09:21)
[2020-05-23] MEDS ORDERED: Dextrose 5%-0.9% NaCl 1,000 ML IV SCH (09:30)
[2020-05-23] MEDS ORDERED: Iopamidol 612 MG/ML 100 ML Bottle IVPUSH ONE (09:39)
[2020-05-23] MEDS ORDERED: Sodium Chloride 0.9% 10 ML Syringe FLUSH SCH (09:45)
[2020-05-23] MEDS ORDERED: Levofloxacin/Dextrose 5%-Water 750 MG in Premix Bag 1 BAG IV ONE (10:23)
[2020-05-23] MEDS ORDERED: HYDROmorphone 1 MG/ML Syringe IVPUSH ONE (11:35)
[2020-05-23] MEDS ORDERED: metroNIDAZOLE/Normal Saline 500 MG in Premix Bag 1 BAG IV ONE (12:17)
[2020-05-23] MEDS ORDERED: Promethazine 25 MG in Sodium Chloride 0.9% 50 ML IV ONE (13:35)
--- NOTE | 2020-05-23 13:59 | PCM.CONS ---
<Lars Watters - Last Filed: 05/23/20 14:01> H&P History of Present Illness - General Admit Problem/Dx: Admission Diagnosis/Problem Admission Diagnosis/Problem Diverticulitis - Related Data Allergies/Adverse Reactions: Allergies Allergy/AdvReac Type Severity Reaction Status Date / Time No Known Allergies Allergy Verified 11/07/17 00:57 Home Medications: Home Meds FLUoxetine HCl [Fluoxetine] 40 mg PO DAILY 11/07/17 [History] Gabapentin [Neurontin] 300 mg PO DAILY 05/23/20 [History] Exam - Vital Signs Vital Signs: Last Vital Signs Temp 36.4 C 05/23/20 09:05 Pulse 57 L 05/23/20 09:05 Resp 16 05/23/20 09:05 BP 119/63 05/23/20 09:05 Pulse Ox 97 05/23/20 09:05 - Patient Data Lab Results Last 24 hrs: Laboratory Results - last 24 hr 05/23/20 05/23/20 05/23/20 Range/Units 09:30 09:30 09:50 WBC 14.89 H (3.98-10.04) K/mm3 RBC 4.18 (3.98-5.22) M/mm3 Hgb 12.7 (11.2-15.7) gm/dl Hct 39.7 (34.1-44.9) % MCV 95.0 H D (79.4-94.8) fl MCH 30.4 (25.6-32.2) pg MCHC 32.0 L (32.2-35.5) g/dl RDW Std Deviation 44.3 (36.4-46.3) fL Plt Count 282 (182-369) K/mm3 MPV 10.7 (9.4-12.3) fl Neutrophils % (Manual) 71 H (40-60) % Band Neutrophils % 0 (0-10) % Lymphocytes % (Manual) 18 L (20-40) % Atypical Lymphs % 0 % Monocytes % (Manual) 11 H (2-10) % Eosinophils % (Manual) 0 L (0.7-5.8) % Basophils % (Manual) 0 L (0.1-1.2) Platelet Estimate Adequate RBC Morph Comment Normal Sodium 138 (136-145) mEq/L Potassium 4.1 (3.5-5.1) mEq/L Chloride 102 (98-107) mEq/L Carbon Dioxide 28 (21-32) mEq/L Anion Gap 12.1 (5-15) BUN 10 (7-18) mg/dL Creatinine 0.9 (0.55-1.02) mg/dL Est Cr Clr Drug Dosing 65.34 mL/min Estimated GFR (MDRD) > 60 (>60) mL/min BUN/Creatinine Ratio 11.1 L (14-18) Glucose 101 (74-106) mg/dL Lactic Acid 0.6 (0.4-2.0) mmol/L Calcium 9.1 (8.5-10.1) mg/dL Magnesium 2.1 (1.8-2.4) mg/dl Total Bilirubin 0.7 (0.2-1.0) mg/dL AST 42 H (15-37) U/L ALT 49 (14-59) U/L Alkaline Phosphatase 89 (46-116) U/L C-Reactive Protein 17.3 H* (<1.0) mg/dL Total Protein 7.8 (6.4-8.2) g/dl Albumin 3.7 (3.4-5.0) g/dl Globulin 4.1 gm/dL Albumin/Globulin Ratio 0.9 L (1-2) Lipase 121 (73-393) U/L Urine Color (Yellow) Urine Appearance (Clear) Urine pH (5.0-8.0) Ur Specific [place] (1.005-1.030) Urine Protein (Negative) Urine Glucose (UA) (Negative) Urine Ketones (Negative) Urine Occult Blood (Negative) Urine Nitrite (Negative) Urine Bilirubin (Negative) Urine Urobilinogen (0.2-1.0) Ur Leukocyte Esterase (Negative) Urine RBC (0-5) /hpf Urine WBC (0-5) /hpf Ur Epithelial Cells (0-5) /hpf Urine Bacteria (FEW) /hpf Urine Mucus (FEW) /hpf SARS-CoV-2 RNA (ELISSA) (NEGATIVE) 05/23/20 05/23/20 Range/Units 10:06 12:38 WBC (3.98-10.04) K/mm3 RBC (3.98-5.22) M/mm3 Hgb (11.2-15.7) gm/dl Hct (34.1-44.9) % MCV (79.4-94.8) fl MCH (25.6-32.2) pg MCHC (32.2-35.5) g/dl RDW Std Deviation (36.4-46.3) fL Plt Count (182-369) K/mm3 MPV (9.4-12.3) fl Neutrophils % (Manual) (40-60) % Band Neutrophils % (0-10) % Lymphocytes % (Manual) (20-40) % Atypical Lymphs % % Monocytes % (Manual) (2-10) % Eosinophils % (Manual) (0.7-5.8) % Basophils % (Manual) (0.1-1.2) Platelet Estimate RBC Morph Comment Sodium (136-145) mEq/L Potassium (3.5-5.1) mEq/L Chloride (98-107) mEq/L Carbon Dioxide (21-32) mEq/L Anion Gap (5-15) BUN (7-18) mg/dL Creatinine (0.55-1.02) mg/dL Est Cr Clr Drug Dosing mL/min Estimated GFR (MDRD) (>60) mL/min BUN/Creatinine Ratio (14-18) Glucose (74-106) mg/dL Lactic Acid (0.4-2.0) mmol/L Calcium (8.5-10.1) mg/dL Magnesium (1.8-2.4) mg/dl Total Bilirubin (0.2-1.0) mg/dL AST (15-37) U/L ALT (14-59) U/L Alkaline Phosphatase (46-116) U/L C-Reactive Protein (<1.0) mg/dL Total Protein (6.4-8.2) g/dl Albumin (3.4-5.0) g/dl Globulin gm/dL Albumin/Globulin Ratio (1-2) Lipase (73-393) U/L Urine Color Yellow (Yellow) Urine Appearance Slt cloudy H (Clear) Urine pH 6.0 (5.0-8.0) Ur Specific [place] 1.025 (1.005-1.030) Urine Protein Trace H (Negative) Urine Glucose (UA) Negative (Negative) Urine Ketones Negative (Negative) Urine Occult Blood Trace-intact H (Negative) Urine Nitrite Negative (Negative) Urine Bilirubin 1+ H (Negative) Urine Urobilinogen 1.0 (0.2-1.0) Ur Leukocyte Esterase Negative (Negative) Urine RBC 0-5 (0-5) /hpf Urine WBC 5-10 H (0-5) /hpf Ur Epithelial Cells 5-10 H (0-5) /hpf Urine Bacteria Many H (FEW) /hpf Urine Mucus Many H (FEW) /hpf SARS-CoV-2 RNA (ELISSA) Positive H (NEGATIVE) Result Diagrams: 05/23/20 09:30 05/23/20 09:30 Sepsis Event Note - Focused Exam Vital Signs: Vital Signs Temp Pulse Resp BP Pulse Ox 05/23/20 09:05 36.4 C 57 L 16 119/63 97 Consult PN Assessment/Plan Procedures: Procedures ASSAY OF LIPASE (11/07/17) COMPLETE CBC W/AUTO DIFF WBC (11/07/17) COMPREHEN METABOLIC PANEL (11/07/17) CT ABD & PELV W/CONTRAST (11/07/17) EMERGENCY DEPT VISIT (11/07/17) HYDRATE IV INFUSION ADD-ON (11/07/17) LAPAROSCOPY APPENDECTOMY (11/07/17) ROUTINE VENIPUNCTURE (11/07/17) THER/PROPH/DIAG IV INF INIT (11/07/17) TX/PRO/DX INJ NEW DRUG ADDON (11/07/17) TX/PRO/DX INJ SAME DRUG EXTRACT OPERATOR (11/07/17) TX/PROPH/DG ADDL SEQ IV INF (11/07/17) URINALYSIS AUTO W/SCOPE (11/07/17) My Orders Last 24 Hours: My Active Orders 05/23/20 09:23 Abdomen Pelvis w Cont [CT] Stat Blood Culture x2 Reflex Set [OM.PC] Stat 05/23/20 09:30 Dextrose 5%-0.9% NaCl [Dextrose 5%-Normal Saline] 1,000 ml IV ASDIRECTED 05/23/20 09:45 Sodium Chloride 0.9% [Saline Flush] 10 ml FLUSH BOLUS 05/23/20 09:50 CULTURE BLOOD [BC] Stat 05/23/20 09:55 CULTURE BLOOD [BC] Stat 05/23/20 13:35 Promethazine [Phenergan] 25 mg Sodium Chloride 0.9% [Normal Saline] 50 ml IV ONETIME 05/23/20 13:44 Admission Status [Patient Status] [ADT] Routine 05/23/20 13:46 Consult to Physician [CONS] Routine 05/23/20 13:47 Notify Provider Consults [RC] ASDIRECTED <Cristal Thurman - Last Filed: 05/23/20 14:08> H&P History of Present Illness - General Date of Service: 05/23/20 Admit Problem/Dx: Admission Diagnosis/Problem Admission Diagnosis/Problem Diverticulitis Source of Information: Patient, Provider History Limitations: Reports: No Limitations - History of Present Illness Initial Comments - Free Text/Narative: The patient is a 55 y/o lady who presents with findings of diverticulitis. She had pain over the course of one week that has gradually worsened. It became severe enough today that she sought medical attention. She reports having one day of fever up to 101 and chills at home. She has associated nausea and vomiting. She denies any hematochezia or melena. Last bowel movement was today after the CT contrast. She reports diarrhea with the most recent bowel movements. She has a history of "colon infection," as well has H. pylori infection. Her last colonoscopy was 4-5 years ago with some findings of diverticulosis. Lower Abdomen Pain Score (Numeric/FACES): 9 Past Medical History Gastrointestinal History: Reports: Other (See Below) Other Gastrointestinal History: "colon infection" Psychiatric History: Reports: Depression - Infectious Disease History Infectious Disease History: Reports: Other (See Below) (Patient did have COVID- 19 illness diagnosed around 12 April 2020) - Past Surgical History Female Surgical History: Reports: Other (See Below) (BLADDER SLING PROCEDURE (OVER 10 YEARS AG). SURGERY WAS TRANSVAGINAL. NO PRIOR ABDOMINAL OPERATIONS.) Social & Family History - Family History GI: Reports: Inflammatory Bowel Disease Neurological: Reports: Alzheimers Disease Oncologic: Reports: Colon, Lung - Tobacco Use Tobacco Use Status *Q: Never Tobacco User - Caffeine Use Caffeine Use: Reports: Coffee - Recreational Drug Use Recreational Drug Use: No - Living Situation & Occupation Living situation: Reports: , with Family (LIVES WITH IN [place]. KIDS ARE GROWN-UP AND LIVE OUTSIDE THE HOUSE.) H&P Review of Systems - Review of Systems: Review Of Systems: See Below General: Reports: Fever, Chills HEENT: Reports: No Symptoms Pulmonary: Reports: No Symptoms Cardiovascular: Reports: No Symptoms Gastrointestinal: Reports: Abdominal Pain, Nausea, Vomiting Genitourinary: Reports: No Symptoms Musculoskeletal: Reports: No Symptoms Skin: Reports: No Symptoms Neurological: Reports: No Symptoms Hematologic/Lymphatic: Reports: No Symptoms Exam - Exam Exam: See Below - Vital Signs Vital Signs: Last Vital Signs Temp 36.4 C 05/23/20 09:05 Pulse 57 L 05/23/20 09:05 Resp 16 05/23/20 09:05 BP 119/63 05/23/20 09:05 Pulse Ox 97 05/23/20 09:05 Weight: 81.919 kg - Exam Quality Assessment: No: Supplemental Oxygen General: Alert, Oriented HEENT: Conjunctiva Clear, EOMI Neck: Supple Lungs: Clear to Auscultation, Normal Respiratory Effort Cardiovascular: Regular Rate, Regular Rhythm GI/Abdominal Exam: Soft, Tender (in suprapubic midline and RLQ) Peripheral Pulses: 2+: Dorsalis Pedis (L), Dorsalis Pedis (R) Skin: Warm, Dry, Intact Neurological: Cranial Nerves Intact Neuro Extensive - Mental Status: Oriented x3, Normal Mood/Affect - Patient Data Lab Results Last 24 hrs: Laboratory Results - last 24 hr 05/23/20 05/23/20 05/23/20 Range/Units 09:30 09:30 09:50 WBC 14.89 H (3.98-10.04) K/mm3 RBC 4.18 (3.98-5.22) M/mm3 Hgb 12.7 (11.2-15.7) gm/dl Hct 39.7 (34.1-44.9) % MCV 95.0 H D (79.4-94.8) fl MCH 30.4 (25.6-32.2) pg MCHC 32.0 L (32.2-35.5) g/dl RDW Std Deviation 44.3 (36.4-46.3) fL Plt Count 282 (182-369) K/mm3 MPV 10.7 (9.4-12.3) fl Neutrophils % (Manual) 71 H (40-60) % Band Neutrophils % 0 (0-10) % Lymphocytes % (Manual) 18 L (20-40) % Atypical Lymphs % 0 % Monocytes % (Manual) 11 H (2-10) % Eosinophils % (Manual) 0 L (0.7-5.8) % Basophils % (Manual) 0 L (0.1-1.2) Platelet Estimate Adequate RBC Morph Comment Normal Sodium 138 (136-145) mEq/L Potassium 4.1 (3.5-5.1) mEq/L Chloride 102 (98-107) mEq/L Carbon Dioxide 28 (21-32) mEq/L Anion Gap 12.1 (5-15) BUN 10 (7-18) mg/dL Creatinine 0.9 (0.55-1.02) mg/dL Est Cr Clr Drug Dosing 65.34 mL/min Estimated GFR (MDRD) > 60 (>60) mL/min BUN/Creatinine Ratio 11.1 L (14-18) Glucose 101 (74-106) mg/dL Lactic Acid 0.6 (0.4-2.0) mmol/L Calcium 9.1 (8.5-10.1) mg/dL Magnesium 2.1 (1.8-2.4) mg/dl Total Bilirubin 0.7 (0.2-1.0) mg/dL AST 42 H (15-37) U/L ALT 49 (14-59) U/L Alkaline Phosphatase 89 (46-116) U/L C-Reactive Protein 17.3 H* (<1.0) mg/dL Total Protein 7.8 (6.4-8.2) g/dl Albumin 3.7 (3.4-5.0) g/dl Globulin 4.1 gm/dL Albumin/Globulin Ratio 0.9 L (1-2) Lipase 121 (73-393) U/L Urine Color (Yellow) Urine Appearance (Clear) Urine pH (5.0-8.0) Ur Specific [place] (1.005-1.030) Urine Protein (Negative) Urine Glucose (UA) (Negative) Urine Ketones (Negative) Urine Occult Blood (Negative) Urine Nitrite (Negative) Urine Bilirubin (Negative) Urine Urobilinogen (0.2-1.0) Ur Leukocyte Esterase (Negative) Urine RBC (0-5) /hpf Urine WBC (0-5) /hpf Ur Epithelial Cells (0-5) /hpf Urine Bacteria (FEW) /hpf Urine Mucus (FEW) /hpf SARS-CoV-2 RNA (ELISSA) (NEGATIVE) 12/26/20 12/26/20 Range/Units 10:06 12:38 WBC (3.98-10.04) K/mm3 RBC (3.98-5.22) M/mm3 Hgb (11.2-15.7) gm/dl Hct (34.1-44.9) % MCV (79.4-94.8) fl MCH (25.6-32.2) pg MCHC (32.2-35.5) g/dl RDW Std Deviation (36.4-46.3) fL Plt Count (182-369) K/mm3 MPV (9.4-12.3) fl Neutrophils % (Manual) (40-60) % Band Neutrophils % (0-10) % Lymphocytes % (Manual) (20-40) % Atypical Lymphs % % Monocytes % (Manual) (2-10) % Eosinophils % (Manual) (0.7-5.8) % Basophils % (Manual) (0.1-1.2) Platelet Estimate RBC Morph Comment Sodium (136-145) mEq/L Potassium (3.5-5.1) mEq/L Chloride (98-107) mEq/L Carbon Dioxide (21-32) mEq/L Anion Gap (5-15) BUN (7-18) mg/dL Creatinine (0.55-1.02) mg/dL Est Cr Clr Drug Dosing mL/min Estimated GFR (MDRD) (>60) mL/min BUN/Creatinine Ratio (14-18) Glucose (74-106) mg/dL Lactic Acid (0.4-2.0) mmol/L Calcium (8.5-10.1) mg/dL Magnesium (1.8-2.4) mg/dl Total Bilirubin (0.2-1.0) mg/dL AST (15-37) U/L ALT (14-59) U/L Alkaline Phosphatase (46-116) U/L C-Reactive Protein (<1.0) mg/dL Total Protein (6.4-8.2) g/dl Albumin (3.4-5.0) g/dl Globulin gm/dL Albumin/Globulin Ratio (1-2) Lipase (73-393) U/L Urine Color Yellow (Yellow) Urine Appearance Slt cloudy H (Clear) Urine pH 6.0 (5.0-8.0) Ur Specific [place] 1.025 (1.005-1.030) Urine Protein Trace H (Negative) Urine Glucose (UA) Negative (Negative) Urine Ketones Negative (Negative) Urine Occult Blood Trace-intact H (Negative) Urine Nitrite Negative (Negative) Urine Bilirubin 1+ H (Negative) Urine Urobilinogen 1.0 (0.2-1.0) Ur Leukocyte Esterase Negative (Negative) Urine RBC 0-5 (0-5) /hpf Urine WBC 5-10 H (0-5) /hpf Ur Epithelial Cells 5-10 H (0-5) /hpf Urine Bacteria Many H (FEW) /hpf Urine Mucus Many H (FEW) /hpf SARS-CoV-2 RNA (ELISSA) Positive H (NEGATIVE) Result Diagrams: 05/23/20 09:30 05/23/20 09:30 Sepsis Event Note - Evaluation Sepsis Screening Result: No Definite Risk - Focused Exam Vital Signs: Vital Signs Temp Pulse Resp BP Pulse Ox 05/23/20 09:05 36.4 C 57 L 16 119/63 97 *Q Meaningful Use (ADM) - VTE Risk Assess *Q Each Risk Factor Represents 1 Point: Age 41 - 59 years, Obesity ( BMI > 25 kg/m2) Total Score 1 Point Risk Factors: 2 Consult PN Assessment/Plan Procedures: Procedures ASSAY OF LIPASE (11/07/17) COMPLETE CBC W/AUTO DIFF WBC (11/07/17) COMPREHEN METABOLIC PANEL (11/07/17) CT ABD & PELV W/CONTRAST (11/07/17) EMERGENCY DEPT VISIT (11/07/17) HYDRATE IV INFUSION ADD-ON (11/07/17) LAPAROSCOPY APPENDECTOMY (11/07/17) ROUTINE VENIPUNCTURE (11/07/17) THER/PROPH/DIAG IV INF INIT (11/07/17) TX/PRO/DX INJ NEW DRUG ADDON (11/07/17) TX/PRO/DX INJ SAME DRUG EXTRACT OPERATOR (11/07/17) TX/PROPH/DG ADDL SEQ IV INF (11/07/17) URINALYSIS AUTO W/SCOPE (11/07/17) (1) Diverticulitis of sigmoid colon SNOMED Code(s): 872541325 Code(s): K57.32 - DVTRCLI OF LG INT W/O PERFORATION OR ABSCESS W/O BLEEDING Current Visit: Yes Problem List Initiated/Reviewed/Updated: Yes My Orders Last 24 Hours: 55 y/o lady with diverticulitis and localized, contained perforation containing air - plan for hospital admission with IV antibiotics - NPO with IVF resuscitation. Will re-evaluated for diet when pt has improved - pain control per primary team - continue home medications - DVT ppx advised with Heparin q 8h and SCDs Will follow for any acute change. Cristal Thurman MD General surgery
[2020-05-23] MEDS ORDERED: Ondansetron 4 MG Tab.DIS PO PRN (14:03)
--- NOTE | 2020-05-23 14:03 | PCM.HP.2 ---
H&P History of Present Illness - General Date of Service: 05/23/20 Admit Problem/Dx: Admission Diagnosis/Problem Admission Diagnosis/Problem Diverticulitis Source of Information: Patient History Limitations: Reports: No Limitations - History of Present Illness Initial Comments - Free Text/Narative: The patient is a 55-year-old lady who had presented to the emergency department with a complaint of lower abdominal pain. On the patient's last colonoscopy she was noted to have diverticulosis. Today she has had a CT scan which is consistent with diverticulitis of the sigmoid colon. The patient says that she started to get nausea with associated vomiting and abdominal pain 1 week ago. The patient said that she has also had fever and chills. She did not have diarrhea until oral contrast. The patient says that she has not had anything like this before. Should also be noted that 1 month ago she was positive for COVID-19 but did not have to be admitted to the hospital. The patient's Covid test is still positive. The patient takes fluoxetine as well as gabapentin to help with her anxiety, depression and menopause symptoms. She has no other complaints at this time. Onset of Symptoms: Reports: Gradual Duration of Symptoms: Reports: Day(s):, Getting Worse Location: Reports: Abdomen Quality: Reports: Stabbing, Throbbing Severity: Moderate Improves with: Reports: Medication Worsens with: Reports: Eating, Movement Associated Symptoms: Reports: Fever/Chills, Nausea/Vomiting Lower Abdomen Pain Score (Numeric/FACES): 9 - Related Data Allergies/Adverse Reactions: Allergies Allergy/AdvReac Type Severity Reaction Status Date / Time No Known Allergies Allergy Verified 11/07/17 00:57 Home Medications: Home Meds FLUoxetine HCl [Fluoxetine] 40 mg PO DAILY 11/07/17 [History] Gabapentin [Neurontin] 300 mg PO DAILY 05/23/20 [History] Past Medical History HEENT History: Reports: None Cardiovascular History: Reports: None Respiratory History: Reports: None Gastrointestinal History: Reports: Diverticulosis, Other (See Below) Other Gastrointestinal History: "colon infection" Genitourinary History: Reports: None Musculoskeletal History: Reports: None Neurological History: Reports: None Psychiatric History: Reports: Depression Endocrine/Metabolic History: Reports: None Dermatologic History: Reports: None - Infectious Disease History Infectious Disease History: Reports: Other (See Below) (Patient did have COVID- 19 illness diagnosed around 12 April 2020) - Past Surgical History Female Surgical History: Reports: Other (See Below) (BLADDER SLING PROCEDURE (OVER 10 YEARS AG). SURGERY WAS TRANSVAGINAL. NO PRIOR ABDOMINAL OPERATIONS.) Social & Family History - Family History Family Medical History: No Pertinent Family History - Tobacco Use Tobacco Use Status *Q: Never Tobacco User - Caffeine Use Caffeine Use: Reports: Coffee - Alcohol Use Alcohol Use History: No - Recreational Drug Use Recreational Drug Use: No - Living Situation & Occupation Living situation: Reports: , with Family (LIVES WITH IN [place]. KIDS ARE GROWN-UP AND LIVE OUTSIDE THE HOUSE.) Occupation: Unemployed H&P Review of Systems - Review of Systems: Review Of Systems: See Below General: Reports: Fever, Chills, Fatigue HEENT: Reports: No Symptoms Pulmonary: Reports: No Symptoms Cardiovascular: Reports: No Symptoms Gastrointestinal: Reports: Abdominal Pain, Anorexia, Diarrhea (Started after contrast material), Nausea, Vomiting Genitourinary: Reports: No Symptoms Musculoskeletal: Reports: No Symptoms Skin: Reports: No Symptoms Psychiatric: Reports: No Symptoms Neurological: Reports: No Symptoms Hematologic/Lymphatic: Reports: No Symptoms Immunologic: Reports: No Symptoms Exam - Exam Exam: See Below - Vital Signs Vital Signs: Last Vital Signs Temp 36.4 C 05/23/20 09:05 Pulse 57 L 05/23/20 09:05 Resp 16 05/23/20 09:05 BP 119/63 05/23/20 09:05 Pulse Ox 97 05/23/20 09:05 Weight: 81.919 kg - Exam Quality Assessment: DVT Prophylaxis. No: Supplemental Oxygen General: Alert, Oriented, Cooperative, Mild Distress HEENT: Conjunctiva Clear, EACs Clear, EOMI, Hearing Intact, Pupils Equal, Pupils Reactive, PERRLA. No: Mucosa Moist & [place] (Dry) Neck: Supple, Trachea Midline Lungs: Clear to Auscultation, Normal Respiratory Effort Cardiovascular: Regular Rate, Regular Rhythm GI/Abdominal Exam: Normal Bowel Sounds, No Distention, Tender (Predominantly left lower quadrant). No: Guarding, Rigid, Rebound (Female) Exam: Deferred Rectal (Female) Exam: Deferred Back Exam: Normal Inspection, Full Range of Motion Extremities: Normal Inspection, Normal Range of Motion, No Pedal Edema Skin: Warm, Dry, Intact Neurological: Cranial Nerves Intact Neuro Extensive - Mental Status: Alert, Oriented x3, Normal Mood/Affect Psychiatric: Alert, Normal Affect, Normal Mood - Patient Data Lab Results Last 24 hrs: Laboratory Results - last 24 hr 05/23/20 05/23/20 05/23/20 Range/Units 09:30 09:30 09:50 WBC 14.89 H (3.98-10.04) K/mm3 RBC 4.18 (3.98-5.22) M/mm3 Hgb 12.7 (11.2-15.7) gm/dl Hct 39.7 (34.1-44.9) % MCV 95.0 H D (79.4-94.8) fl MCH 30.4 (25.6-32.2) pg MCHC 32.0 L (32.2-35.5) g/dl RDW Std Deviation 44.3 (36.4-46.3) fL Plt Count 282 (182-369) K/mm3 MPV 10.7 (9.4-12.3) fl Neutrophils % (Manual) 71 H (40-60) % Band Neutrophils % 0 (0-10) % Lymphocytes % (Manual) 18 L (20-40) % Atypical Lymphs % 0 % Monocytes % (Manual) 11 H (2-10) % Eosinophils % (Manual) 0 L (0.7-5.8) % Basophils % (Manual) 0 L (0.1-1.2) Platelet Estimate Adequate RBC Morph Comment Normal Sodium 138 (136-145) mEq/L Potassium 4.1 (3.5-5.1) mEq/L Chloride 102 (98-107) mEq/L Carbon Dioxide 28 (21-32) mEq/L Anion Gap 12.1 (5-15) BUN 10 (7-18) mg/dL Creatinine 0.9 (0.55-1.02) mg/dL Est Cr Clr Drug Dosing 65.34 mL/min Estimated GFR (MDRD) > 60 (>60) mL/min BUN/Creatinine Ratio 11.1 L (14-18) Glucose 101 (74-106) mg/dL Lactic Acid 0.6 (0.4-2.0) mmol/L Calcium 9.1 (8.5-10.1) mg/dL Magnesium 2.1 (1.8-2.4) mg/dl Total Bilirubin 0.7 (0.2-1.0) mg/dL AST 42 H (15-37) U/L ALT 49 (14-59) U/L Alkaline Phosphatase 89 (46-116) U/L C-Reactive Protein 17.3 H* (<1.0) mg/dL Total Protein 7.8 (6.4-8.2) g/dl Albumin 3.7 (3.4-5.0) g/dl Globulin 4.1 gm/dL Albumin/Globulin Ratio 0.9 L (1-2) Lipase 121 (73-393) U/L Urine Color (Yellow) Urine Appearance (Clear) Urine pH (5.0-8.0) Ur Specific [place] (1.005-1.030) Urine Protein (Negative) Urine Glucose (UA) (Negative) Urine Ketones (Negative) Urine Occult Blood (Negative) Urine Nitrite (Negative) Urine Bilirubin (Negative) Urine Urobilinogen (0.2-1.0) Ur Leukocyte Esterase (Negative) Urine RBC (0-5) /hpf Urine WBC (0-5) /hpf Ur Epithelial Cells (0-5) /hpf Urine Bacteria (FEW) /hpf Urine Mucus (FEW) /hpf SARS-CoV-2 RNA (ELISSA) (NEGATIVE) 05/23/20 05/23/20 Range/Units 10:06 12:38 WBC (3.98-10.04) K/mm3 RBC (3.98-5.22) M/mm3 Hgb (11.2-15.7) gm/dl Hct (34.1-44.9) % MCV (79.4-94.8) fl MCH (25.6-32.2) pg MCHC (32.2-35.5) g/dl RDW Std Deviation (36.4-46.3) fL Plt Count (182-369) K/mm3 MPV (9.4-12.3) fl Neutrophils % (Manual) (40-60) % Band Neutrophils % (0-10) % Lymphocytes % (Manual) (20-40) % Atypical Lymphs % % Monocytes % (Manual) (2-10) % Eosinophils % (Manual) (0.7-5.8) % Basophils % (Manual) (0.1-1.2) Platelet Estimate RBC Morph Comment Sodium (136-145) mEq/L Potassium (3.5-5.1) mEq/L Chloride (98-107) mEq/L Carbon Dioxide (21-32) mEq/L Anion Gap (5-15) BUN (7-18) mg/dL Creatinine (0.55-1.02) mg/dL Est Cr Clr Drug Dosing mL/min Estimated GFR (MDRD) (>60) mL/min BUN/Creatinine Ratio (14-18) Glucose (74-106) mg/dL Lactic Acid (0.4-2.0) mmol/L Calcium (8.5-10.1) mg/dL Magnesium (1.8-2.4) mg/dl Total Bilirubin (0.2-1.0) mg/dL AST (15-37) U/L ALT (14-59) U/L Alkaline Phosphatase (46-116) U/L C-Reactive Protein (<1.0) mg/dL Total Protein (6.4-8.2) g/dl Albumin (3.4-5.0) g/dl Globulin gm/dL Albumin/Globulin Ratio (1-2) Lipase (73-393) U/L Urine Color Yellow (Yellow) Urine Appearance Slt cloudy H (Clear) Urine pH 6.0 (5.0-8.0) Ur Specific [place] 1.025 (1.005-1.030) Urine Protein Trace H (Negative) Urine Glucose (UA) Negative (Negative) Urine Ketones Negative (Negative) Urine Occult Blood Trace-intact H (Negative) Urine Nitrite Negative (Negative) Urine Bilirubin 1+ H (Negative) Urine Urobilinogen 1.0 (0.2-1.0) Ur Leukocyte Esterase Negative (Negative) Urine RBC 0-5 (0-5) /hpf Urine WBC 5-10 H (0-5) /hpf Ur Epithelial Cells 5-10 H (0-5) /hpf Urine Bacteria Many H (FEW) /hpf Urine Mucus Many H (FEW) /hpf SARS-CoV-2 RNA (ELISSA) Positive H (NEGATIVE) Result Diagrams: 05/23/20 09:30 05/23/20 09:30 Sepsis Event Note - Evaluation Sepsis Screening Result: No Definite Risk - Focused Exam Vital Signs: Vital Signs Temp Pulse Resp BP Pulse Ox 05/23/20 09:05 36.4 C 57 L 16 119/63 97 - Problem List (1) Diverticulitis of sigmoid colon SNOMED Code(s): 872686601 ICD Code: K57.32 - DVTRCLI OF LG INT W/O PERFORATION OR ABSCESS W/O BLEEDING Status: Acute Priority: High Current Visit: Yes (2) Leukocytosis, unspecified SNOMED Code(s): 819122614, 232694764 ICD Code: D72.829 - ELEVATED WHITE BLOOD CELL COUNT, UNSPECIFIED Status: Acute Priority: High Current Visit: Yes Qualifiers: Leukocytosis type: bandemia Qualified Code(s): D72.825 - Bandemia (3) Depression SNOMED Code(s): 47419838 ICD Code: F32.9 - MAJOR DEPRESSIVE DISORDER, SINGLE EPISODE, UNSPECIFIED Status: Chronic Priority: High Current Visit: Yes Qualifiers: Depression Type: other depression Qualified Code(s): F32.89 - Other specified depressive episodes Problem List Initiated/Reviewed/Updated: Yes Orders Last 24hrs: Active Orders 24 hr Category Date Time Status Admission Status [Patient Status] [ADT] Routine ADT 05/23/20 13:44 Active Notify Provider Consults [RC] ASDIRECTED Care 05/23/20 13:47 Active Consult to Physician [CONS] Routine Cons 05/23/20 13:46 Active Abdomen Pelvis w Cont [CT] Stat Exams 05/23/20 09:23 Taken CULTURE BLOOD [BC] Stat Lab 05/23/20 09:50 Received CULTURE BLOOD [BC] Stat Lab 05/23/20 09:55 Received Dextrose 5%-0.9% NaCl [Dextrose 5%-Normal Saline] 1,000 Med 05/23/20 09:30 Active ml IV ASDIRECTED Promethazine [Phenergan] 25 mg Med 05/23/20 13:35 Active Sodium Chloride 0.9% [Normal Saline] 50 ml IV ONETIME Sodium Chloride 0.9% [Saline Flush] Med 05/23/20 09:45 Active 10 ml FLUSH BOLUS Blood Culture x2 Reflex Set [OM.PC] Stat Oth 05/23/20 09:23 Ordered Medication Orders Dextrose/Sodium Chloride (Dextrose 5%-Normal Saline) 1,000 mls @ 250 mls/hr IV ASDIRECTED VICKY Last Admin: 05/23/20 09:32 Dose: 250 mls/hr Documented by: VIDAL Promethazine HCl 25 mg/ Sodium (Chloride) 51 mls @ 100 mls/hr IV ONETIME ONE Stop: 05/23/20 14:05 Last Admin: 05/23/20 13:57 Dose: 100 mls/hr Documented by: VIDAL Sodium Chloride (Saline Flush) 10 ml FLUSH BOLUS [facility] Assessment/Plan Comment:: The patient is an otherwise healthy 55-year-old lady who has been admitted to inpatient for acute diverticulitis identified on CT scan. Surgeon has been consulted. The patient will be kept n.p.o. I have also ordered that the patient received 500 mg of Levaquin IV daily. She also have metronidazole 500 mg every 8 hours. The patient will also have IV normal saline at 125 mL/h. DVT prophylaxis has also been initiated at 30 mg of Lovenox subcutaneous daily. The patient's pain will also be controlled with the use of morphine 2 mg IV every 2 hours as needed for pain. To counter the patient's nausea and vomiting I have also ordered Zofran 4 mg IV every 4 hours as well as oral Zofran if able to tolerate. The patient's home gabapentin has been held temporarily I have also restarted the patient's home fluoxetine. I have also ordered repeat laboratory studies for the morning. The patient is not septic at this time and a discussion with surgeon has indicated that surgery is not necessary at this point. - Mortality Measure Prognosis:: Good
[2020-05-23] MEDS: Sodium Chloride 0.9% 1,000 ML IV SCH ×2 (15:42→23:38)
[2020-05-23] MEDS: Enoxaparin 40 MG/0.4 ML Syringe SUBCUT SCH (15:44)
[2020-05-23] MEDS: Ondansetron 4 MG/2 ML SDV IV PRN (20:14)
[2020-05-23] MEDS: Morphine 2 MG/ML SYRINGE IVPUSH PRN (20:19)
[2020-05-23] MEDS: metroNIDAZOLE/Normal Saline 500 MG in Premix Bag 1 BAG IV SCH (20:27)
[2020-05-24] MEDS: Ondansetron 4 MG/2 ML SDV IV PRN ×3 (04:28→20:14)
[2020-05-24] MEDS: Morphine 2 MG/ML SYRINGE IVPUSH PRN ×2 (04:32→11:00)
[2020-05-24] MEDS: metroNIDAZOLE/Normal Saline 500 MG in Premix Bag 1 BAG IV SCH ×3 (04:35→20:15)
[2020-05-24] MEDS: FLUoxetine 20 MG Cap PO SCH (08:30)
[2020-05-24] MEDS: Acetaminophen 325 MG Tab PO PRN ×2 (08:31→20:24)
[2020-05-24] MEDS: Enoxaparin 40 MG/0.4 ML Syringe SUBCUT SCH (08:33)
[2020-05-24] MEDS: Sodium Chloride 0.9% 1,000 ML IV SCH ×2 (08:39→17:45)
--- NOTE | 2020-05-24 09:53 | CT ---
CT abdomen and pelvis Technique: Multiple axial sections were obtained from above the dome of the diaphragm inferiorly through the pubic symphysis. Intravenous and oral contrast was utilized. Delayed images were also obtained through the abdomen and pelvis. Reconstructed coronal and sagittal imaging was performed. Comparison: Previous CT abdomen and pelvis exam of 11/07/17. Findings: There is bowel wall thickening and surrounding inflammatory change involving the sigmoid colon. Diverticuli are seen within this area and findings are felt compatible with diverticulitis. There is free fluid being seen within the pelvis most likely from the diverticulitis. Other findings: Visualized lung bases show nothing acute. Liver contains no focal abnormality. Spleen appears within normal limits. Adrenal glands show no nodule. Gallbladder contains no calcified gallstones. Kidneys show symmetric contrast enhancement. No hydronephrosis or mass within the ureters and bladder. Aorta shows no aneurysm. Pancreas is normal. No retroperitoneal adenopathy or mesenteric abnormalities are appreciated. Prior surgery is noted at the base of the cecum presumably from prior appendectomy. Other pelvic findings as described above. Bone window settings were reviewed. Mild scattered degenerative change within the spine is seen. No acute osseous abnormality is appreciated. Impression: 1. Findings compatible with moderate diverticulitis within the sigmoid colon. Fluid is seen within the pelvis compatible with the diverticulitis. 2. No other acute abnormality is appreciated. Diagnostic code #3 I agree with preliminary report from [facility], finalized on 05/23/20, 1:26 PM NOC TECHNICIAN
[2020-05-24] MEDS ORDERED: Levofloxacin/Dextrose 5%-Water 500 MG in Premix Bag 1 BAG IV SCH (11:00)
--- NOTE | 2020-05-24 11:14 | PCM.PN ---
- General Info Date of Service: 05/24/20 Admission Dx/Problem (Free Text): Admission Diagnosis/Problem Admission Diagnosis/Problem Diverticulitis Subjective Update: The patient is a 55-year-old lady who was admitted through the emergency department yesterday with a complaint of lower abdominal pain. CT scan was consistent with diverticulitis. Surgery is consulted. The patient says today that she is doing better. Her pain is not as significant. She has denied any nausea or vomiting. The patient also had been treated for COVID-19 and still remains positive. Functional Status: Reports: Pain Controlled. Denies: Tolerating Diet - Review of Systems General: Reports: No Symptoms HEENT: Reports: No Symptoms Pulmonary: Reports: No Symptoms Cardiovascular: Reports: No Symptoms Gastrointestinal: Reports: Abdominal Pain, Diarrhea Genitourinary: Reports: No Symptoms Musculoskeletal: Reports: No Symptoms Skin: Reports: No Symptoms Neurological: Reports: No Symptoms Psychiatric: Reports: No Symptoms - Patient Data Vitals - Most Recent: Last Vital Signs Temp 36.8 C 05/24/20 04:36 Pulse 58 L 05/24/20 04:36 Resp 14 05/24/20 04:36 BP 119/63 05/24/20 04:36 Pulse Ox 95 05/24/20 04:36 Weight - Most Recent: 81.873 kg I&O - Last 24 Hours: Intake & Output 05/23/20 05/24/20 05/24/20 22:59 06:59 14:59 Intake Total 1200 Output Total 600 Balance 600 Lab Results Last 24 Hours: Laboratory Results - last 24 hr 05/23/20 05/24/20 05/24/20 Range/Units 12:38 04:55 04:55 WBC 8.37 (3.98-10.04) K/mm3 RBC 3.61 L (3.98-5.22) M/mm3 Hgb 11.1 L D (11.2-15.7) gm/dl Hct 34.3 (34.1-44.9) % MCV 95.0 H (79.4-94.8) fl MCH 30.7 (25.6-32.2) pg MCHC 32.4 (32.2-35.5) g/dl RDW Std Deviation 44.3 (36.4-46.3) fL Plt Count 219 (182-369) K/mm3 MPV 10.9 (9.4-12.3) fl Neut % (Auto) 58.4 (34.0-71.1) % Lymph % (Auto) 29.3 (19.3-51.7) % [place] % (Auto) 9.8 (4.7-12.5) % Eos % (Auto) 2.3 (0.7-5.8) Baso % (Auto) 0.2 (0.1-1.2) % Neut # (Auto) 4.89 (1.56-6.13) K/mm3 Lymph # (Auto) 2.45 (1.18-3.74) K/mm3 [place] # (Auto) 0.82 H (0.24-0.36) K/mm3 Eos # (Auto) 0.19 (0.04-0.36) K/mm3 Baso # (Auto) 0.02 (0.01-0.08) K/mm3 Sodium 142 (136-145) mEq/L Potassium 3.7 (3.5-5.1) mEq/L Chloride 108 H (98-107) mEq/L Carbon Dioxide 25 (21-32) mEq/L Anion Gap 12.7 (5-15) BUN 7 (7-18) mg/dL Creatinine 0.7 (0.55-1.02) mg/dL Est Cr Clr Drug Dosing 84.01 mL/min Estimated GFR (MDRD) > 60 (>60) mL/min BUN/Creatinine Ratio 10.0 L (14-18) Glucose 100 (74-106) mg/dL Calcium 8.5 (8.5-10.1) mg/dL Magnesium 1.9 (1.8-2.4) mg/dl Total Bilirubin 0.4 (0.2-1.0) mg/dL AST 21 (15-37) U/L ALT 36 (14-59) U/L Alkaline Phosphatase 69 (46-116) U/L C-Reactive Protein 11.8 H* (<1.0) mg/dL Total Protein 6.3 L (6.4-8.2) g/dl Albumin 2.8 L (3.4-5.0) g/dl Globulin 3.5 gm/dL Albumin/Globulin Ratio 0.8 L (1-2) SARS-CoV-2 RNA (ELISSA) Positive H (NEGATIVE) [place] Results Last 24 Hours: Microbiology 05/23/20 09:50 Aerobic Blood Culture - Preliminary Blood - Venous NO GROWTH AFTER 1 DAY Anaerobic Blood Culture - Preliminary NO GROWTH AFTER 1 DAY 05/23/20 09:55 Aerobic Blood Culture - Preliminary Blood - Venous - Lab Draw NO GROWTH AFTER 1 DAY Anaerobic Blood Culture - Preliminary NO GROWTH AFTER 1 DAY Med Orders - Current: Current Medications Acetaminophen (Tylenol) 650 mg PO Q6H PRN PRN Reason: Pain Last Admin: 05/24/20 08:31 Dose: 650 mg Documented by: Enoxaparin Sodium (Lovenox) 40 mg SUBCUT DAILY [facility] Last Admin: 05/24/20 08:33 Dose: 40 mg Documented by: Fluoxetine HCl (Prozac) 40 mg PO DAILY [facility] Last Admin: 05/24/20 08:30 Dose: 40 mg Documented by: Sodium Chloride (Normal Saline) 1,000 mls @ 125 mls/hr IV ASDIRECTED [facility] Last Admin: 05/24/20 08:39 Dose: 125 mls/hr Documented by: Levofloxacin/Dextrose 500 mg/ (Premix) 100 mls @ 100 mls/hr IV Q24H [facility] Last Admin: 05/24/20 11:03 Dose: 100 mls/hr Documented by: Metronidazole 500 mg/ Premix 100 mls @ 100 mls/hr IV Q8H [facility] Last Admin: 05/24/20 04:35 Dose: 100 mls/hr Documented by: Morphine Sulfate (Morphine) 2 mg IVPUSH Q2H PRN PRN Reason: Pain (severe 7-10) Stop: 05/24/20 14:05 Last Admin: 05/24/20 11:00 Dose: 2 mg Documented by: Ondansetron HCl (Zofran Odt) 4 mg PO Q6H PRN PRN Reason: nausea, able to take PO Ondansetron HCl (Zofran) 4 mg IV Q4H PRN PRN Reason: Nausea/Vomiting Last Admin: 05/24/20 10:57 Dose: 4 mg Documented by: Sodium Chloride (Saline Flush) 10 ml FLUSH BOLUS [facility] Discontinued Medications Hydromorphone HCl (Dilaudid) 0.5 mg IVPUSH ONETIME ONE Stop: 05/23/20 09:22 Last Admin: 05/23/20 09:35 Dose: 0.5 mg Documented by: Hydromorphone HCl (Dilaudid) 1 mg IVPUSH ONETIME ONE Stop: 05/23/20 11:36 Last Admin: 05/23/20 11:42 Dose: 1 mg Documented by: Dextrose/Sodium Chloride (Dextrose 5%-Normal Saline) 1,000 mls @ 250 mls/hr IV ASDIRECTED VICKY Last Admin: 05/23/20 09:32 Dose: 250 mls/hr Documented by: Levofloxacin/Dextrose 750 mg/ (Premix) 150 mls @ 100 mls/hr IV ONETIME ONE Stop: 05/23/20 11:52 Last Admin: 05/23/20 11:39 Dose: 100 mls/hr Documented by: Metronidazole 500 mg/ Premix 100 mls @ 100 mls/hr IV ONETIME ONE Stop: 05/23/20 13:16 Last Admin: 05/23/20 12:42 Dose: 100 mls/hr Documented by: Promethazine HCl 25 mg/ Sodium (Chloride) 51 mls @ 100 mls/hr IV ONETIME ONE Stop: 05/23/20 14:05 Last Admin: 05/23/20 13:57 Dose: 100 mls/hr Documented by: Iopamidol (Isovue-300 (61%)) 100 ml IVPUSH ONETIME ONE Stop: 05/23/20 09:40 Last Admin: 05/23/20 17:12 Dose: Not Given Documented by: Ondansetron HCl (Zofran) 4 mg IVPUSH ONETIME ONE Stop: 05/23/20 09:22 Last Admin: 05/23/20 09:34 Dose: 4 mg Documented by: Ondansetron HCl (Zofran) 4 mg IVPUSH ONETIME ONE Stop: 05/23/20 12:27 Last Admin: 05/23/20 12:42 Dose: 4 mg Documented by: - Exam Quality Assessment: DVT Prophylaxis. No: Supplemental Oxygen General: Alert, Oriented, Cooperative, No Acute Distress HEENT: Pupils Equal, Pupils Reactive, EOMI. No: Mucous Membr. Moist/[place] (Dry) Neck: Supple, Trachea Midline Lungs: Clear to Auscultation, Normal Respiratory Effort Cardiovascular: Regular Rate, Regular Rhythm GI/Abdominal Exam: Normal Bowel Sounds, Soft, Non-Tender, No Distention (Female) Exam: Deferred Back Exam: Normal Inspection, Full Range of Motion Extremities: Normal Inspection, No Pedal Edema Skin: Warm, Dry, Intact Neurological: No New Focal Deficit Psy/Mental Status: Alert, Normal Affect, Normal Mood Sepsis Event Note - Evaluation Sepsis Screening Result: No Definite Risk - Focused Exam Vital Signs: Vital Signs Temp Pulse Resp BP Pulse Ox 05/24/20 04:36 36.8 C 58 L 14 119/63 95 05/23/20 23:40 36.7 C 71 15 108/62 93 L - Problem List & Annotations (1) Diverticulitis of sigmoid colon SNOMED Code(s): 352425448 Code(s): K57.32 - DVTRCLI OF LG INT W/O PERFORATION OR ABSCESS W/O BLEEDING Status: Acute Priority: High Current Visit: Yes (2) Leukocytosis, unspecified SNOMED Code(s): 800797162, 612873985 Code(s): D72.829 - ELEVATED WHITE BLOOD CELL COUNT, UNSPECIFIED Status: Acute Priority: High Current Visit: Yes Qualifiers: Leukocytosis type: bandemia Qualified Code(s): D72.825 - Bandemia (3) Depression SNOMED Code(s): 00412725 Code(s): F32.9 - MAJOR DEPRESSIVE DISORDER, SINGLE EPISODE, UNSPECIFIED Status: Chronic Priority: High Current Visit: Yes Qualifiers: Depression Type: other depression Qualified Code(s): F32.89 - Other specified depressive episodes - Problem List Review Problem List Initiated/Reviewed/Updated: Yes - My Orders Last 24 Hours: My Active Orders 05/23/20 14:03 Oxygen Therapy [RC] PRN Up ad Nely [RC] ASDIRECTED VTE/DVT Education [RC] .PRN Vital Signs [RC] Q4HR Morphine 2 mg IVPUSH Q2H PRN Ondansetron [Zofran ODT] 4 mg PO Q6H PRN Ondansetron [Zofran] 4 mg IV Q4H PRN Resuscitation Status Routine 05/23/20 14:15 Enoxaparin [Lovenox] 40 mg SUBCUT DAILY Sodium Chloride 0.9% [Normal Saline] 1,000 ml IV ASDIRECTED 05/23/20 Dinner Nothing per Oral Now Diet [DIET] 05/23/20 21:00 metroNIDAZOLE/Normal Saline [Flagyl 500 MG in NS 100 ML] 500 mg Premix Bag 1 bag IV Q8H 05/24/20 08:12 Acetaminophen [TylenoL] 650 mg PO Q6H PRN 05/24/20 09:00 FLUoxetine [PROzac] 40 mg PO DAILY 05/24/20 11:00 Levofloxacin/Dextrose 5%-Water [Levaquin in D5W 500 MG/100 ML] 500 mg Premix Bag 1 bag IV Q24H - Plan Plan:: The patient is an otherwise healthy 55-year-old lady who has been admitted to inpatient for acute diverticulitis identified on CT scan. Surgeon has been consulted. The patient will be kept n.p.o. I have also ordered that the patient received 500 mg of Levaquin IV daily. She also have metronidazole 500 mg every 8 hours. The patient will also have IV normal saline at 125 mL/h. DVT prophylaxis has also been initiated at 30 mg of Lovenox subcutaneous daily. The patient's pain will also be controlled with the use of morphine 2 mg IV every 2 hours as needed for pain. To counter the patient's nausea and vomiting I have also ordered Zofran 4 mg IV every 4 hours as well as oral Zofran if able to tolerate. The patient's home gabapentin has been held temporarily I have also restarted the patient's home fluoxetine. I have also ordered repeat laboratory studies for the morning. The patient is not septic at this time and a discussion with surgeon has indicated that surgery is not necessary at this point. 05/24/2020 Overall, the patient is doing much better today. General surgeon has evaluated the patient. She will be kept n.p.o. for now. She also have normal saline hydration at 125 mL/h. DVT prophylaxis will continue at 30 mg Lovenox subcutaneous daily. Narcotics, morphine, will be used to help control her pain. She also has Zofran 4 mg IV every 4 hours as needed for nausea and vomiting. Repeat laboratory studies have been ordered for the morning. The patient has not had any overt signs of sepsis associated with the diverticulitis. The patient will continue on IV Levaquin and IV metronidazole. The patient has been encouraged to ambulate. And she should be appropriate for discharge in 1 to 2 days depending upon resolution of her diverticulitis.
--- NOTE | 2020-05-24 11:54 | PCM.CONSN ---
- General Info Date of Service: 05/24/20 Admission Dx/Problem (Free Text): Admission Diagnosis/Problem Admission Diagnosis/Problem Diverticulitis Functional Status: Reports: Pain Controlled (still having some pain in the lower abdomen), Ambulating, Urinating, Other (nausea and vomiting improved) - Patient Data Vitals - Most Recent: Last Vital Signs Temp 36.5 C 05/24/20 11:14 Pulse 46 L 05/24/20 11:14 Resp 14 05/24/20 11:14 BP 105/53 L 05/24/20 11:14 Pulse Ox 95 05/24/20 11:14 Weight - Most Recent: 81.873 kg I&O - Last 24 Hours: Intake & Output 05/23/20 05/24/20 05/24/20 22:59 06:59 14:59 Intake Total 1200 Output Total 600 Balance 600 Lab Results Last 24 Hours: Laboratory Results - last 24 hr 05/23/20 05/24/20 05/24/20 Range/Units 12:38 04:55 04:55 WBC 8.37 (3.98-10.04) K/mm3 RBC 3.61 L (3.98-5.22) M/mm3 Hgb 11.1 L D (11.2-15.7) gm/dl Hct 34.3 (34.1-44.9) % MCV 95.0 H (79.4-94.8) fl MCH 30.7 (25.6-32.2) pg MCHC 32.4 (32.2-35.5) g/dl RDW Std Deviation 44.3 (36.4-46.3) fL Plt Count 219 (182-369) K/mm3 MPV 10.9 (9.4-12.3) fl Neut % (Auto) 58.4 (34.0-71.1) % Lymph % (Auto) 29.3 (19.3-51.7) % [place] % (Auto) 9.8 (4.7-12.5) % Eos % (Auto) 2.3 (0.7-5.8) Baso % (Auto) 0.2 (0.1-1.2) % Neut # (Auto) 4.89 (1.56-6.13) K/mm3 Lymph # (Auto) 2.45 (1.18-3.74) K/mm3 [place] # (Auto) 0.82 H (0.24-0.36) K/mm3 Eos # (Auto) 0.19 (0.04-0.36) K/mm3 Baso # (Auto) 0.02 (0.01-0.08) K/mm3 Sodium 142 (136-145) mEq/L Potassium 3.7 (3.5-5.1) mEq/L Chloride 108 H (98-107) mEq/L Carbon Dioxide 25 (21-32) mEq/L Anion Gap 12.7 (5-15) BUN 7 (7-18) mg/dL Creatinine 0.7 (0.55-1.02) mg/dL Est Cr Clr Drug Dosing 84.01 mL/min Estimated GFR (MDRD) > 60 (>60) mL/min BUN/Creatinine Ratio 10.0 L (14-18) Glucose 100 (74-106) mg/dL Calcium 8.5 (8.5-10.1) mg/dL Magnesium 1.9 (1.8-2.4) mg/dl Total Bilirubin 0.4 (0.2-1.0) mg/dL AST 21 (15-37) U/L ALT 36 (14-59) U/L Alkaline Phosphatase 69 (46-116) U/L C-Reactive Protein 11.8 H* (<1.0) mg/dL Total Protein 6.3 L (6.4-8.2) g/dl Albumin 2.8 L (3.4-5.0) g/dl Globulin 3.5 gm/dL Albumin/Globulin Ratio 0.8 L (1-2) SARS-CoV-2 RNA (ELISSA) Positive H (NEGATIVE) [place] Results Last 24 Hours: Microbiology 05/23/20 09:50 Aerobic Blood Culture - Preliminary Blood - Venous NO GROWTH AFTER 1 DAY Anaerobic Blood Culture - Preliminary NO GROWTH AFTER 1 DAY 05/23/20 09:55 Aerobic Blood Culture - Preliminary Blood - Venous - Lab Draw NO GROWTH AFTER 1 DAY Anaerobic Blood Culture - Preliminary NO GROWTH AFTER 1 DAY Med Orders - Current: Current Medications Acetaminophen (Tylenol) 650 mg PO Q6H PRN PRN Reason: Pain Last Admin: 05/24/20 08:31 Dose: 650 mg Documented by: Enoxaparin Sodium (Lovenox) 40 mg SUBCUT DAILY [facility] Last Admin: 05/24/20 08:33 Dose: 40 mg Documented by: Fluoxetine HCl (Prozac) 40 mg PO DAILY [facility] Last Admin: 05/24/20 08:30 Dose: 40 mg Documented by: Sodium Chloride (Normal Saline) 1,000 mls @ 125 mls/hr IV ASDIRECTED [facility] Last Admin: 05/24/20 08:39 Dose: 125 mls/hr Documented by: Levofloxacin/Dextrose 500 mg/ (Premix) 100 mls @ 100 mls/hr IV Q24H [facility] Last Admin: 05/24/20 11:03 Dose: 100 mls/hr Documented by: Metronidazole 500 mg/ Premix 100 mls @ 100 mls/hr IV Q8H [facility] Last Admin: 05/24/20 04:35 Dose: 100 mls/hr Documented by: Morphine Sulfate (Morphine) 2 mg IVPUSH Q2H PRN PRN Reason: Pain (severe 7-10) Stop: 05/24/20 14:05 Last Admin: 05/24/20 11:00 Dose: 2 mg Documented by: Ondansetron HCl (Zofran Odt) 4 mg PO Q6H PRN PRN Reason: nausea, able to take PO Ondansetron HCl (Zofran) 4 mg IV Q4H PRN PRN Reason: Nausea/Vomiting Last Admin: 05/24/20 10:57 Dose: 4 mg Documented by: Sodium Chloride (Saline Flush) 10 ml FLUSH BOLUS [facility] Discontinued Medications Hydromorphone HCl (Dilaudid) 0.5 mg IVPUSH ONETIME ONE Stop: 05/23/20 09:22 Last Admin: 05/23/20 09:35 Dose: 0.5 mg Documented by: Hydromorphone HCl (Dilaudid) 1 mg IVPUSH ONETIME ONE Stop: 05/23/20 11:36 Last Admin: 05/23/20 11:42 Dose: 1 mg Documented by: Dextrose/Sodium Chloride (Dextrose 5%-Normal Saline) 1,000 mls @ 250 mls/hr IV ASDIRECTED [facility] Last Admin: 05/23/20 09:32 Dose: 250 mls/hr Documented by: Levofloxacin/Dextrose 750 mg/ (Premix) 150 mls @ 100 mls/hr IV ONETIME ONE Stop: 05/23/20 11:52 Last Admin: 05/23/20 11:39 Dose: 100 mls/hr Documented by: Metronidazole 500 mg/ Premix 100 mls @ 100 mls/hr IV ONETIME ONE Stop: 05/23/20 13:16 Last Admin: 05/23/20 12:42 Dose: 100 mls/hr Documented by: Promethazine HCl 25 mg/ Sodium (Chloride) 51 mls @ 100 mls/hr IV ONETIME ONE Stop: 05/23/20 14:05 Last Admin: 05/23/20 13:57 Dose: 100 mls/hr Documented by: Iopamidol (Isovue-300 (61%)) 100 ml IVPUSH ONETIME ONE Stop: 05/23/20 09:40 Last Admin: 05/23/20 17:12 Dose: Not Given Documented by: Ondansetron HCl (Zofran) 4 mg IVPUSH ONETIME ONE Stop: 05/23/20 09:22 Last Admin: 05/23/20 09:34 Dose: 4 mg Documented by: Ondansetron HCl (Zofran) 4 mg IVPUSH ONETIME ONE Stop: 05/23/20 12:27 Last Admin: 05/23/20 12:42 Dose: 4 mg Documented by: - Exam Quality Assessment: No: Supplemental Oxygen General: Alert, Oriented HEENT: Pupils Equal Neck: Supple Lungs: Normal Respiratory Effort GI/Abdominal Exam: Soft, Tender (in RLQ and suprapubic area) Sepsis Event Note - Evaluation Sepsis Screening Result: No Definite Risk - Focused Exam Vital Signs: Vital Signs Temp Pulse Resp BP Pulse Ox 05/24/20 11:14 36.5 C 46 L 14 105/53 L 95 05/24/20 08:45 36.6 C 75 14 114/62 93 L 05/24/20 04:36 36.8 C 58 L 14 119/63 95 Consult PN Assessment/Plan Procedures: Procedures ASSAY OF LIPASE (11/07/17) COMPLETE CBC W/AUTO DIFF WBC (11/07/17) COMPREHEN METABOLIC PANEL (11/07/17) CT ABD & PELV W/CONTRAST (11/07/17) EMERGENCY DEPT VISIT (11/07/17) HYDRATE IV INFUSION ADD-ON (11/07/17) LAPAROSCOPY APPENDECTOMY (11/07/17) ROUTINE VENIPUNCTURE (11/07/17) THER/PROPH/DIAG IV INF INIT (11/07/17) TX/PRO/DX INJ NEW DRUG ADDON (11/07/17) TX/PRO/DX INJ SAME DRUG 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 Would not recommend advancing to regular diet until pain has resolved. If clear liquids causes pain, would change back to NPO status - continue IV antibiotics - plan for colonoscopy in 6-8wks after infection has resolved to evaluate for cause of diverticulitis and increased risk of colon cancer from family history. - will continue to follow for resolution of pain Plan for surgery follow up 2 weeks after discharge Cristal Thurman MD General Surgery
[2020-05-24] MEDS ORDERED: Loperamide 2 MG Cap PO PRN (12:08)
[2020-05-24] MEDS ORDERED: traZODone 50 MG Tab PO ONE (21:17)
[2020-05-25] MEDS: Sodium Chloride 0.9% 1,000 ML IV SCH (01:53)
[2020-05-25] MEDS: Acetaminophen 325 MG Tab PO PRN (02:01)
[2020-05-25] MEDS: metroNIDAZOLE/Normal Saline 500 MG in Premix Bag 1 BAG IV SCH (05:03)
--- NOTE | 2020-05-25 07:33 | PCM.CONSN ---
- General Info Date of Service: 05/25/20 Admission Dx/Problem (Free Text): Admission Diagnosis/Problem Admission Diagnosis/Problem Diverticulitis Subjective Update: The patient reports abdominal soreness in the lower abdomen. Nausea only when receiving metronidazole. Diarrhea resolved Per nursing, no fever Functional Status: Reports: Pain Controlled, Urinating - Patient Data Vitals - Most Recent: Last Vital Signs Temp 36.4 C 05/25/20 05:07 Pulse 52 L 05/25/20 05:07 Resp 18 05/25/20 05:07 BP 111/45 L 05/25/20 05:07 Pulse Ox 93 L 05/25/20 05:07 Weight - Most Recent: 83.824 kg I&O - Last 24 Hours: Intake & Output 05/24/20 05/25/20 05/25/20 22:59 06:59 14:59 Intake Total 2500 2200 Output Total 750 900 Balance 1750 1300 Lab Results Last 24 Hours: Laboratory Results - last 24 hr 05/25/20 05/25/20 Range/Units 06:00 06:00 WBC 6.50 (3.98-10.04) K/mm3 RBC 3.44 L (3.98-5.22) M/mm3 Hgb 10.5 L (11.2-15.7) gm/dl Hct 33.3 L (34.1-44.9) % MCV 96.8 H (79.4-94.8) fl MCH 30.5 (25.6-32.2) pg MCHC 31.5 L (32.2-35.5) g/dl RDW Std Deviation 43.8 (36.4-46.3) fL Plt Count 214 (182-369) K/mm3 MPV 10.7 (9.4-12.3) fl Neut % (Auto) 57.6 (34.0-71.1) % Lymph % (Auto) 28.6 (19.3-51.7) % [place] % (Auto) 9.5 (4.7-12.5) % Eos % (Auto) 3.8 (0.7-5.8) Baso % (Auto) 0.3 (0.1-1.2) % Neut # (Auto) 3.74 (1.56-6.13) K/mm3 Lymph # (Auto) 1.86 (1.18-3.74) K/mm3 [place] # (Auto) 0.62 H (0.24-0.36) K/mm3 Eos # (Auto) 0.25 (0.04-0.36) K/mm3 Baso # (Auto) 0.02 (0.01-0.08) K/mm3 Sodium 141 (136-145) mEq/L Potassium 3.7 (3.5-5.1) mEq/L Chloride 109 H (98-107) mEq/L Carbon Dioxide 25 (21-32) mEq/L Anion Gap 10.7 (5-15) BUN 6 L (7-18) mg/dL Creatinine 0.8 (0.55-1.02) mg/dL Est Cr Clr Drug Dosing 73.51 mL/min Estimated GFR (MDRD) > 60 (>60) mL/min BUN/Creatinine Ratio 7.5 L (14-18) Glucose 94 (74-106) mg/dL Calcium 8.4 L (8.5-10.1) mg/dL Magnesium 1.7 L (1.8-2.4) mg/dl C-Reactive Protein 5.1 H* (<1.0) mg/dL [place] Results Last 24 Hours: Microbiology 05/23/20 09:50 Aerobic Blood Culture - Preliminary Blood - Venous NO GROWTH AFTER 1 DAY Anaerobic Blood Culture - Preliminary NO GROWTH AFTER 1 DAY 05/23/20 09:55 Aerobic Blood Culture - Preliminary Blood - Venous - Lab Draw NO GROWTH AFTER 1 DAY Anaerobic Blood Culture - Preliminary NO GROWTH AFTER 1 DAY Med Orders - Current: Current Medications Acetaminophen (Tylenol) 650 mg PO Q6H PRN PRN Reason: Pain Last Admin: 05/25/20 02:01 Dose: 650 mg Documented by: Enoxaparin Sodium (Lovenox) 40 mg SUBCUT DAILY [facility] Last Admin: 05/24/20 08:33 Dose: 40 mg Documented by: Fluoxetine HCl (Prozac) 40 mg PO DAILY [facility] Last Admin: 05/24/20 08:30 Dose: 40 mg Documented by: Sodium Chloride (Normal Saline) 1,000 mls @ 125 mls/hr IV ASDIRECTED [facility] Last Admin: 05/25/20 01:53 Dose: 125 mls/hr Documented by: Levofloxacin/Dextrose 500 mg/ (Premix) 100 mls @ 100 mls/hr IV Q24H [facility] Last Admin: 05/24/20 11:03 Dose: 100 mls/hr Documented by: Metronidazole 500 mg/ Premix 100 mls @ 100 mls/hr IV Q8H [facility] Last Admin: 05/25/20 05:03 Dose: 100 mls/hr Documented by: Loperamide HCl (Imodium) 2 mg PO Q6H PRN PRN Reason: Diarrhea Last Admin: 05/24/20 17:52 Dose: 2 mg Documented by: Ondansetron HCl (Zofran Odt) 4 mg PO Q6H PRN PRN Reason: nausea, able to take PO Ondansetron HCl (Zofran) 4 mg IV Q4H PRN PRN Reason: Nausea/Vomiting Last Admin: 05/24/20 20:14 Dose: 4 mg Documented by: Sodium Chloride (Saline Flush) 10 ml FLUSH BOLUS [facility] Discontinued Medications Hydromorphone HCl (Dilaudid) 0.5 mg IVPUSH ONETIME ONE Stop: 05/23/20 09:22 Last Admin: 05/23/20 09:35 Dose: 0.5 mg Documented by: Hydromorphone HCl (Dilaudid) 1 mg IVPUSH ONETIME ONE Stop: 05/23/20 11:36 Last Admin: 05/23/20 11:42 Dose: 1 mg Documented by: Dextrose/Sodium Chloride (Dextrose 5%-Normal Saline) 1,000 mls @ 250 mls/hr IV ASDIRECTED [facility] Last Admin: 05/23/20 09:32 Dose: 250 mls/hr Documented by: Levofloxacin/Dextrose 750 mg/ (Premix) 150 mls @ 100 mls/hr IV ONETIME ONE Stop: 05/23/20 11:52 Last Admin: 05/23/20 11:39 Dose: 100 mls/hr Documented by: Metronidazole 500 mg/ Premix 100 mls @ 100 mls/hr IV ONETIME ONE Stop: 05/23/20 13:16 Last Admin: 05/23/20 12:42 Dose: 100 mls/hr Documented by: Promethazine HCl 25 mg/ Sodium (Chloride) 51 mls @ 100 mls/hr IV ONETIME ONE Stop: 05/23/20 14:05 Last Admin: 05/23/20 13:57 Dose: 100 mls/hr Documented by: Iopamidol (Isovue-300 (61%)) 100 ml IVPUSH ONETIME ONE Stop: 05/23/20 09:40 Last Admin: 05/23/20 17:12 Dose: Not Given Documented by: Morphine Sulfate (Morphine) 2 mg IVPUSH Q2H PRN PRN Reason: Pain (severe 7-10) Stop: 05/24/20 14:05 Last Admin: 05/24/20 11:00 Dose: 2 mg Documented by: Ondansetron HCl (Zofran) 4 mg IVPUSH ONETIME ONE Stop: 05/23/20 09:22 Last Admin: 05/23/20 09:34 Dose: 4 mg Documented by: Ondansetron HCl (Zofran) 4 mg IVPUSH ONETIME ONE Stop: 05/23/20 12:27 Last Admin: 05/23/20 12:42 Dose: 4 mg Documented by: Trazodone HCl (Trazodone) 50 mg PO ONETIME ONE Stop: 05/24/20 21:18 Last Admin: 05/24/20 21:28 Dose: 50 mg Documented by: - Exam Quality Assessment: No: Supplemental Oxygen General: Alert, Oriented HEENT: EOMI Lungs: Normal Respiratory Effort GI/Abdominal Exam: Soft, Tender (mild in suprapubic midline) Sepsis Event Note - Evaluation Sepsis Screening Result: No Definite Risk - Focused Exam Vital Signs: Vital Signs Temp Pulse Resp BP Pulse Ox 05/25/20 05:07 36.4 C 52 L 18 111/45 L 93 L 05/24/20 23:56 36.8 C 51 L 16 115/61 93 L 05/24/20 20:30 36.6 C 41 L 18 123/49 L 98 Consult PN Assessment/Plan Procedures: Procedures ASSAY OF LIPASE (11/07/17) COMPLETE CBC W/AUTO DIFF WBC (11/07/17) COMPREHEN METABOLIC PANEL (11/07/17) CT ABD & PELV W/CONTRAST (11/07/17) EMERGENCY DEPT VISIT (11/07/17) HYDRATE IV INFUSION ADD-ON (11/07/17) LAPAROSCOPY APPENDECTOMY (11/07/17) ROUTINE VENIPUNCTURE (11/07/17) THER/PROPH/DIAG IV INF INIT (11/07/17) TX/PRO/DX INJ NEW DRUG ADDON (11/07/17) TX/PRO/DX INJ SAME DRUG SMALL ENGINE MECHANIC (11/07/17) TX/PROPH/DG ADDL SEQ IV INF (11/07/17) URINALYSIS AUTO W/SCOPE (11/07/17) (1) Diverticulitis of sigmoid colon SNOMED Code(s): 203222272 Code(s): K57.32 - DVTRCLI OF LG INT W/O PERFORATION OR ABSCESS W/O BLEEDING Priority: High Current Visit: Yes Problem List Initiated/Reviewed/Updated: Yes Plan: 55 y/o lady with diverticulitis and contained perforation of air. Improved - may advance diet as tolerated to regular diet - recommend d/c IVF since pt is tolerating PO - transition to PO antibiotics. - plan for colonoscopy in 6-8wks after infection has resolved to evaluate for cause of diverticulitis and increased risk of colon cancer from family history. Plan for surgery follow up 2 weeks after discharge Cristal Thurman MD General Surgery
[2020-05-25] MEDS: FLUoxetine 20 MG Cap PO SCH (09:09)
[2020-05-25] MEDS: Enoxaparin 40 MG/0.4 ML Syringe SUBCUT SCH (09:10)
[2020-05-25] MEDS ORDERED: Magnesium Sulfate/Water 2 GM in Premix Bag 1 BAG IV ONE (09:14)
[2020-05-25] MEDS ORDERED: Levofloxacin 500 MG Tab PO SCH (11:00)
[2020-05-25] MEDS ORDERED: metroNIDAZOLE 500 MG Tab PO SCH (13:00)
--- NOTE | 2020-05-25 14:44 | PCM.DCSUM1 ---
Discharge Summary - Hospital Course HPI Initial Comments: The patient is a 55-year-old lady who had presented to the emergency department with a complaint of lower abdominal pain. On the patient's last colonoscopy she was noted to have diverticulosis. Today she has had a CT scan which is consistent with diverticulitis of the sigmoid colon. The patient says that she started to get nausea with associated vomiting and abdominal pain 1 week ago. The patient said that she has also had fever and chills. She did not have diarrhea until oral contrast. The patient says that she has not had anything like this before. Should also be noted that 1 month ago she was positive for COVID-19 but did not have to be admitted to the hospital. The patient's Covid test is still positive. The patient takes fluoxetine as well as gabapentin to help with her anxiety, depression and menopause symptoms. She has no other co mplaints at this time. Assessment/Plan Comment:: The patient is an otherwise healthy 55-year-old lady who has been admitted to inpatient for acute diverticulitis identified on CT scan. Surgeon has been consulted. The patient will be kept n.p.o. I have also ordered that the patient received 500 mg of Levaquin IV daily. She also have metronidazole 500 mg every 8 hours. The patient will also have IV normal saline at 125 mL/h. DVT prophylaxis has also been initiated at 30 mg of Lovenox subcutaneous daily. The patient's pain will also be controlled with the use of morphine 2 mg IV every 2 hours as needed for pain. To counter the patient's nausea and vomiting I have also ordered Zofran 4 mg IV every 4 hours as well as oral Zofran if able to tolerate. The patient's home gabapentin has been held temporarily I have also restarted the patient's home fluoxetine. I have also ordered repeat laboratory studies for the morning. The patient is not septic at this time and a discussion with surgeon has indicated that surgery is not necessary at this point. Diagnosis: Stroke: No - Discharge Data Discharge Date: 05/25/20 Discharge Disposition: Home, Self-Care 01 Condition: Good - Referral to Home Health Primary Care Physician: Salome Huston MD - Patient Summary/Data Consults: Consultations 05/23/20 13:46 Consult to Physician [CONS] Routine Hospital Course: 05/24/2020 Overall, the patient is doing much better today. General surgeon has evaluated the patient. She will be kept n.p.o. for now. She also have normal saline hydration at 125 mL/h. DVT prophylaxis will continue at 30 mg Lovenox subcutaneous daily. Narcotics, morphine, will be used to help control her pain. She also has Zofran 4 mg IV every 4 hours as needed for nausea and vomiting. Repeat laboratory studies have been ordered for the morning. The patient has not had any overt signs of sepsis associated with the diverticulitis. The patient will continue on IV Levaquin and IV metronidazole. The patient has been encouraged to ambulate. And she should be appropriate for discharge in 1 to 2 days depending upon resolution of her diverticulitis. 05/25/2020 Patient continues to do well. She had her diet advanced to regular diet and tolerated breakfast and lunch well without any increasing pain. Abdominal pain is essentially resolved. Antibiotics have been switched to oral and she is ready for discharge. Patient will follow up with Dr. Fontaine and surgery and her primary care provider the next 2 weeks. If pain returns she needs return to the emergency department. - Patient Instructions Diet: Usual Diet as Tolerated Activity: As Tolerated Driving: May Drive Today Showering/Bathing: May Shower Notify Provider of: Fever, Increased Pain Other/Special Instructions: Follow up with PCP and Dr. Fontaine in the next 2 weeks. Finish antibiotics. Reture to ED if pain returns. - Discharge Plan *PRESCRIPTION DRUG MONITORING PROGRAM REVIEWED*: Not Applicable *COPY OF PRESCRIPTION DRUG MONITORING REPORT IN PATIENT VIANNEY: Not Applicable Prescriptions/Med Rec: metroNIDAZOLE [Flagyl] 500 mg PO Q8H #21 tablet levoFLOXacin [Levaquin] 500 mg PO Q24H #7 tablet Home Medications: Home Meds FLUoxetine HCl [Fluoxetine] 40 mg PO DAILY 11/07/17 [History] Gabapentin [Neurontin] 300 mg PO DAILY 05/23/20 [History] levoFLOXacin [Levaquin] 500 mg PO Q24H #7 tablet 05/25/20 [Rx] metroNIDAZOLE [Flagyl] 500 mg PO Q8H #21 tablet 05/25/20 [Rx] Patient Handouts: Diverticulitis, Sepsis, Diagnosis, Adult Forms: ED Department Discharge Referrals: Cristal Thurman MD [Physician] - 06/09/20 1:20 pm (Follow-up with Dr Fontaine, General Surgeon, in 2 weeks. Colonoscopy may be done in 6-8 weeks.) Salome Huston MD [Primary Care Provider] - 06/05/20 1:45 pm (Hospital follow-up appointment.) - Discharge Summary/Plan Comment DC Time >30 min.: No - General Info Date of Service: 05/25/20 Admission Dx/Problem (Free Text: Admission Diagnosis/Problem Admission Diagnosis/Problem Diverticulitis Subjective Update: Patient states she is doing well. Abdominal pain has essentially resolved. No fever or chills. No bowel movement today. Functional Status: Reports: Pain Controlled - Review of Systems General: Reports: No Symptoms HEENT: Reports: No Symptoms Pulmonary: Reports: No Symptoms Cardiovascular: Reports: No Symptoms Gastrointestinal: Reports: No Symptoms Musculoskeletal: Reports: No Symptoms Neurological: Reports: No Symptoms Psychiatric: Reports: No Symptoms - Patient Data Vitals - Most Recent: Last Vital Signs Temp 98.1 F 05/25/20 11:35 Pulse 40 L 05/25/20 11:35 Resp 16 05/25/20 11:35 BP 145/75 H 05/25/20 11:35 Pulse Ox 97 05/25/20 11:35 Weight - Most Recent: 184 lb I&O - Last 24 hours: Intake & Output 05/24/20 05/25/20 05/25/20 22:59 06:59 14:59 Intake Total 2500 2200 480 Output Total 750 900 Balance 1750 1300 480 Lab Results - Last 24 hrs: Laboratory Results - last 24 hr 05/25/20 05/25/20 Range/Units 06:00 06:00 WBC 6.50 (3.98-10.04) K/mm3 RBC 3.44 L (3.98-5.22) M/mm3 Hgb 10.5 L (11.2-15.7) gm/dl Hct 33.3 L (34.1-44.9) % MCV 96.8 H (79.4-94.8) fl MCH 30.5 (25.6-32.2) pg MCHC 31.5 L (32.2-35.5) g/dl RDW Std Deviation 43.8 (36.4-46.3) fL Plt Count 214 (182-369) K/mm3 MPV 10.7 (9.4-12.3) fl Neut % (Auto) 57.6 (34.0-71.1) % Lymph % (Auto) 28.6 (19.3-51.7) % [place]ay % (Auto) 9.5 (4.7-12.5) % Eos % (Auto) 3.8 (0.7-5.8) Baso % (Auto) 0.3 (0.1-1.2) % Neut # (Auto) 3.74 (1.56-6.13) K/mm3 Lymph # (Auto) 1.86 (1.18-3.74) K/mm3 [place]ay # (Auto) 0.62 H (0.24-0.36) K/mm3 Eos # (Auto) 0.25 (0.04-0.36) K/mm3 Baso # (Auto) 0.02 (0.01-0.08) K/mm3 Sodium 141 (136-145) mEq/L Potassium 3.7 (3.5-5.1) mEq/L Chloride 109 H (98-107) mEq/L Carbon Dioxide 25 (21-32) mEq/L Anion Gap 10.7 (5-15) BUN 6 L (7-18) mg/dL Creatinine 0.8 (0.55-1.02) mg/dL Est Cr Clr Drug Dosing 73.51 mL/min Estimated GFR (MDRD) > 60 (>60) mL/min BUN/Creatinine Ratio 7.5 L (14-18) Glucose 94 (74-106) mg/dL Calcium 8.4 L (8.5-10.1) mg/dL Magnesium 1.7 L (1.8-2.4) mg/dl C-Reactive Protein 5.1 H* (<1.0) mg/dL LOS Results - Last 24 hrs: Microbiology 05/23/20 09:55 Aerobic Blood Culture - Preliminary Blood - Venous - Lab Draw NO GROWTH AFTER 2 DAYS Anaerobic Blood Culture - Preliminary NO GROWTH AFTER 2 DAYS 05/23/20 09:50 Aerobic Blood Culture - Preliminary Blood - Venous NO GROWTH AFTER 2 DAYS Anaerobic Blood Culture - Preliminary NO GROWTH AFTER 2 DAYS Med Orders - Current: Current Medications Acetaminophen (Tylenol) 650 mg PO Q6H PRN PRN Reason: Pain Last Admin: 05/25/20 02:01 Dose: 650 mg Documented by: Enoxaparin Sodium (Lovenox) 40 mg SUBCUT DAILY [facility] Last Admin: 05/25/20 09:10 Dose: Not Given Documented by: Fluoxetine HCl (Prozac) 40 mg PO DAILY [facility] Last Admin: 05/25/20 09:09 Dose: 40 mg Documented by: Gabapentin (Neurontin) 300 mg PO DAILY [facility] Levofloxacin (Levaquin) 500 mg PO Q24H [facility] Last Admin: 05/25/20 11:58 Dose: 500 mg Documented by: Loperamide HCl (Imodium) 2 mg PO Q6H PRN PRN Reason: Diarrhea Last Admin: 05/24/20 17:52 Dose: 2 mg Documented by: Metronidazole (Flagyl) 500 mg PO Q8H [facility] Last Admin: 05/25/20 11:59 Dose: 500 mg Documented by: Ondansetron HCl (Zofran Odt) 4 mg PO Q6H PRN PRN Reason: nausea, able to take PO Ondansetron HCl (Zofran) 4 mg IV Q4H PRN PRN Reason: Nausea/Vomiting Last Admin: 05/24/20 20:14 Dose: 4 mg Documented by: Sodium Chloride (Saline Flush) 10 ml FLUSH BOLUS [facility] Discontinued Medications Hydromorphone HCl (Dilaudid) 0.5 mg IVPUSH ONETIME ONE Stop: 05/23/20 09:22 Last Admin: 05/23/20 09:35 Dose: 0.5 mg Documented by: Hydromorphone HCl (Dilaudid) 1 mg IVPUSH ONETIME ONE Stop: 05/23/20 11:36 Last Admin: 05/23/20 11:42 Dose: 1 mg Documented by: Dextrose/Sodium Chloride (Dextrose 5%-Normal Saline) 1,000 mls @ 250 mls/hr IV ASDIRECTED [facility] Last Admin: 05/23/20 09:32 Dose: 250 mls/hr Documented by: Levofloxacin/Dextrose 750 mg/ (Premix) 150 mls @ 100 mls/hr IV ONETIME ONE Stop: 05/23/20 11:52 Last Admin: 05/23/20 11:39 Dose: 100 mls/hr Documented by: Metronidazole 500 mg/ Premix 100 mls @ 100 mls/hr IV ONETIME ONE Stop: 05/23/20 13:16 Last Admin: 05/23/20 12:42 Dose: 100 mls/hr Documented by: Promethazine HCl 25 mg/ Sodium (Chloride) 51 mls @ 100 mls/hr IV ONETIME ONE Stop: 05/23/20 14:05 Last Admin: 05/23/20 13:57 Dose: 100 mls/hr Documented by: Sodium Chloride (Normal Saline) 1,000 mls @ 125 mls/hr IV ASDIRECTED [facility] Last Admin: 05/25/20 01:53 Dose: 125 mls/hr Documented by: Levofloxacin/Dextrose 500 mg/ (Premix) 100 mls @ 100 mls/hr IV Q24H [facility] Last Admin: 05/24/20 11:03 Dose: 100 mls/hr Documented by: Metronidazole 500 mg/ Premix 100 mls @ 100 mls/hr IV Q8H [facility] Last Admin: 05/25/20 05:03 Dose: 100 mls/hr Documented by: Magnesium Sulfate 2 gm/ Premix 50 mls @ 25 mls/hr IV ONETIME ONE Stop: 05/25/20 11:13 Last Admin: 05/25/20 09:58 Dose: 25 mls/hr Documented by: Iopamidol (Isovue-300 (61%)) 100 ml IVPUSH ONETIME ONE Stop: 05/23/20 09:40 Last Admin: 05/23/20 17:12 Dose: Not Given Documented by: Morphine Sulfate (Morphine) 2 mg IVPUSH Q2H PRN PRN Reason: Pain (severe 7-10) Stop: 05/24/20 14:05 Last Admin: 05/24/20 11:00 Dose: 2 mg Documented by: Ondansetron HCl (Zofran) 4 mg IVPUSH ONETIME ONE Stop: 05/23/20 09:22 Last Admin: 05/23/20 09:34 Dose: 4 mg Documented by: Ondansetron HCl (Zofran) 4 mg IVPUSH ONETIME ONE Stop: 05/23/20 12:27 Last Admin: 05/23/20 12:42 Dose: 4 mg Documented by: Trazodone HCl (Trazodone) 50 mg PO ONETIME ONE Stop: 05/24/20 21:18 Last Admin: 05/24/20 21:28 Dose: 50 mg Documented by: - Exam Quality Assessment: Denies: Supplemental Oxygen General: Reports: Alert, Oriented HEENT: Reports: Pupils Equal, Mucous Membr. Moist/[place] Neck: Reports: Supple Lungs: Reports: Clear to Auscultation, Normal Respiratory Effort Cardiovascular: Reports: Regular Rate, Regular Rhythm GI/Abdominal Exam: Soft, Non-Tender, No Organomegaly, No Distention, No Abnormal Bruit, No Mass, Pelvis Stable, Abnormal Bowel Sounds (Decreased) Extremities: Normal Inspection, Normal Range of Motion, Non-Tender, No Pedal Edema, Normal Capillary Refill Neurological: Reports: No New Focal Deficit Psy/Mental Status: Reports: Alert, Normal Affect, Normal Mood
[2020-05-26] MEDS ORDERED: Gabapentin 300 MG Cap PO SCH (09:00)
== END 2020-05-25 15:43 | disposition home or self-care (01) | DRG 391 ==
LOC: JD.ED 08:59 → JD.MS 13:44
PROVIDERS: ADMIT Internal Medicine; ATTEND Internal Medicine
DX: K57.32 Diverticulitis of large intestine without perforation or abscess without bleeding (principal); U07.1 COVID-19; Z79.899 Other long term (current) drug therapy; F32.89 Other specified depressive episodes; F41.9 Anxiety disorder, unspecified
CPT/HCPCS: 36415; 74177; 74177-26; 80048; 80053; 81001; 83605; 83690; 83735; 85007; 85025; 85027; 86140; 87040; 96365; 96366; 96368; 96375; 96376; 99285-25; A9270-GY; J1170; J1650; J1956; J2270; J2405; J2550; J3475; J3490; J7030; J7042; U0002

== ENCOUNTER 2020-08-03 12:50 | Emergency (ER) | payer OTHER ==
--- NOTE | 2020-08-03 13:21 | EDM.PDOC ---
ED HPI GENERAL MEDICAL PROBLEM - General Chief Complaint: Abdominal Pain Stated Complaint: ABDOMINAL PAIN Time Seen by Provider: 08/03/20 13:19 Source of Information: Reports: Patient History Limitations: Reports: No Limitations - History of Present Illness INITIAL COMMENTS - FREE TEXT/NARRATIVE: 55-year-old female presents to the ED for evaluation of persistent left lower quadrant abdominal pain left pelvic pain for the better part of a week. She has a history of recent diverticulitis at [facility] in 2019. She was seen in the clinic earlier this week and advised that she had increased stool throughout her left hemicolon and advised to take MiraLAX which she did and she states she had several small bowel movements but not a lot. In spite of is the pain is been gradually increasing intensity in the left lower quadrant of her abdomen. It hurts to walk at times. Pain was intermittent but now is constant the last 48 hours. She has not appreciated it radiating through to her back. She has noticed no blood in her stool. She appreciates that emptying her bladder seems to give her some relief of the pain. She denies appreciating any fever or chills. Appetite has been retained. She has been taking some Aleve and Tylenol for pain. Denies any dysuria urgency or frequency. She did have a follow-up colonoscopy after her bout of diverticulitis in early May but apparently no other polyps or pathology was identified. She is able to localize the pain quite well to her left lower quadrant just above the inguinal ligament laterally. Previous abdominal surgery is that of an appendectomy. Onset: Gradual Onset Date: 07/27/20 Duration: Day(s):, Getting Worse Location: Reports: Abdomen (Left lower quadrant of the abdomen.) Quality: Reports: Ache. Denies: Sharp, Stabbing (Is a deep aching pain.) Severity: Moderate Improves with: Reports: Rest (6 out of 10) Worsens with: Reports: Movement Context: Reports: Other (Rosana's occurrence about a week ago and gradually intensifying). 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: Acetaminophen, NSAIDS (Aleve.) Left Lower Abdomen Pain Score (Numeric/FACES): 9 - Related Data Allergies Allergy/AdvReac Type Severity Reaction Status Date / Time No Known Allergies Allergy Verified 08/03/20 13:01 Home Meds: Home Meds FLUoxetine HCl [Fluoxetine] 40 mg PO DAILY 11/07/17 [History] Gabapentin [Neurontin] 300 mg PO DAILY 05/23/20 [History] Ondansetron [Zofran] 4 mg BUCCAL Q6H PRN #10 tab 08/03/20 [Rx] levoFLOXacin [Levaquin] 500 mg PO DAILY #12 tab 08/03/20 [Rx] metroNIDAZOLE [Flagyl] 500 mg PO Q8H #20 tab 08/03/20 [Rx] oxyCODONE HCl/Acetaminophen [Percocet 5-325 mg Tablet] 1 - 2 each PO Q4H PRN #12 tablet 08/03/20 [Rx] Past Medical History HEENT History: Reports: None Cardiovascular History: Reports: None Respiratory History: Reports: None Gastrointestinal History: Reports: Diverticulosis, Other (See Below) Other Gastrointestinal History: "colon infection"; h.pylori infection Genitourinary History: Reports: None Other COMPLIANCE MONITOR History: She is menopausal. She is taking both Prozac and gabapentin at this time for hot flashes. Musculoskeletal History: Reports: None Neurological History: Reports: None Psychiatric History: Reports: Depression Endocrine/Metabolic History: Reports: None Dermatologic History: Reports: None - Infectious Disease History Infectious Disease History: Reports: Novel Coronavirus, Other (See Below) Other Infectious Disease History: Covid + Mar, 2020 - Past Surgical History HEENT Surgical History: Reports: Oral Surgery GI Surgical History: Reports: Appendectomy, Colonoscopy Female Surgical History: Reports: Breast Reduction, Other (See Below) Other Female Surgeries/Procedures: bladder sling surgery 10 years ago Social & Family History - Family History Family Medical History: No Pertinent Family History GI: Reports: Inflammatory Bowel Disease Neurological: Reports: Alzheimers Disease Oncologic: Reports: Colon, Lung - Tobacco Use Tobacco Use Status *Q: Never Tobacco User - Caffeine Use Caffeine Use: Reports: None Caffeine Use Comment: 2-3 cups of coffee per day - Recreational Drug Use Recreational Drug Use: No - Living Situation & Occupation Living situation: Reports: , with Family (LIVES WITH IN [place]. KIDS ARE GROWN-UP AND LIVE OUTSIDE THE HOUSE.) Occupation: Unemployed ED ROS GENERAL - Review of Systems Review Of Systems: See Below Constitutional: Reports: Malaise, Decreased Appetite (Slightly decreased appetite.). Denies: Fever, Chills HEENT: Reports: Glasses Respiratory: Reports: No Symptoms Cardiovascular: Reports: No Symptoms Endocrine: Reports: No Symptoms GI/Abdominal: Reports: Abdominal Pain (See history of present illness), Constipation, Decreased Appetite (Vaginal mildly decreased as of late), Nausea. Denies: Vomiting (Comes and goes) : Reports: No Symptoms Musculoskeletal: Reports: Back Pain, Joint Pain Skin: Reports: No Symptoms (Patient on low back pain occasional joint pain knees and hips.) Neurological: Reports: No Symptoms Psychiatric: Reports: No Symptoms Hematologic/Lymphatic: Reports: No Symptoms Immunologic: Reports: No Symptoms ED EXAM, GI/ABD - Physical Exam Exam: See Below Exam Limited By: No Limitations General Appearance: Alert, WD/WN, No Apparent Distress, Other (Temperature is 36.6 degrees. Heart rate is 70 and sinus respiratory to 16 with O2 sats of 98% room air BP 144/81.) Eyes: Bilateral: Normal Appearance (No scleral icterus or blepharal pallor.) Throat/Mouth: Normal Inspection, Normal Lips, Normal Oropharynx, Other (Tongue is moist.) Respiratory/Chest: No Respiratory Distress, Lungs Clear, Normal Breath Sounds, No Accessory Muscle Use Cardiovascular: Normal Peripheral Pulses, Regular Rate, Rhythm, No Edema, No Gallop, No Murmur, No Rub GI/Abdominal Exam: Normal Bowel Sounds, Soft, No Organomegaly, No Distention, No Abnormal Bruit, No Mass, Tender (Tenderness is localized to the left lower quadrant of the abdomen over the distribution of the sigmoid colon and also suprapubically. Exam is highly suspect for diverticulitis.) Back Exam: Normal Inspection, Full Range of Motion. No: CVA Tenderness (L), CVA Tenderness (R) Extremities: Normal Inspection, Normal Range of Motion, Non-Tender, No Pedal Edema Neurological: Alert, Oriented, CN II-XII Intact, Normal Cognition, Normal Gait Psychiatric: Normal Affect, Normal Mood Skin Exam: Warm, Dry, Intact, Normal Color, No Rash Course - Vital Signs Last Recorded V/S: Last Vital Signs Temp 36.6 C 08/03/20 12:58 Pulse 78 08/03/20 12:58 Resp 16 08/03/20 12:58 BP 144/81 H 08/03/20 12:58 Pulse Ox 98 08/03/20 12:58 - Orders/Labs/Meds Orders: Active Orders 24 hr Category Date Time Status Sodium Chloride 0.9% [Normal Saline] 1,000 ml Med 08/03/20 13:30 Active IV ASDIRECTED Sodium Chloride 0.9% [Saline Flush] Med 08/03/20 13:45 Active 10 ml FLUSH ONETIME PRN Medication Orders Sodium Chloride (Normal Saline) 1,000 mls @ 125 mls/hr IV ASDIRECTED VICKY Last Admin: 08/03/20 13:53 Dose: 125 mls/hr Documented by: LIEN Sodium Chloride (Saline Flush) 10 ml FLUSH ONETIME PRN PRN Reason: IV FLUSH Last Admin: 08/03/20 14:46 Dose: 10 ml Documented by: Admin: 08/03/20 14:06 Dose: 10 ml Documented by: LIEN Labs: Laboratory Tests 08/03/20 08/03/20 08/03/20 Range/Units 13:00 13:00 13:57 WBC 15.13 H (3.98-10.04) K/mm3 RBC 4.49 (3.98-5.22) M/mm3 Hgb 13.6 D (11.2-15.7) gm/dl Hct 41.9 (34.1-44.9) % MCV 93.3 D (79.4-94.8) fl MCH 30.3 (25.6-32.2) pg MCHC 32.5 (32.2-35.5) g/dl RDW Std Deviation 46.2 (36.4-46.3) fL Plt Count 312 D (182-369) K/mm3 MPV 11.2 (9.4-12.3) fl Neut % (Auto) 72.7 H (34.0-71.1) % Lymph % (Auto) 17.2 L (19.3-51.7) % [place] % (Auto) 8.1 (4.7-12.5) % Eos % (Auto) 1.5 (0.7-5.8) Baso % (Auto) 0.3 (0.1-1.2) % Neut # (Auto) 11.00 H (1.56-6.13) K/mm3 Lymph # (Auto) 2.60 (1.18-3.74) K/mm3 [place] # (Auto) 1.23 H (0.24-0.36) K/mm3 Eos # (Auto) 0.23 (0.04-0.36) K/mm3 Baso # (Auto) 0.04 (0.01-0.08) K/mm3 Manual Slide Review Normal smear Sodium 142 (136-145) mEq/L Potassium 4.2 (3.5-5.1) mEq/L Chloride 102 (98-107) mEq/L Carbon Dioxide 28 (21-32) mEq/L Anion Gap 16.2 H (5-15) BUN 13 (7-18) mg/dL Creatinine 0.9 (0.55-1.02) mg/dL Est Cr Clr Drug Dosing 65.34 mL/min Estimated GFR (MDRD) > 60 (>60) mL/min BUN/Creatinine Ratio 14.4 (14-18) Glucose 121 H (74-106) mg/dL Calcium 9.1 (8.5-10.1) mg/dL Magnesium 2.2 (1.8-2.4) mg/dl Total Bilirubin 0.4 (0.2-1.0) mg/dL AST 41 H (15-37) U/L ALT 70 H (14-59) U/L Alkaline Phosphatase 97 (46-116) U/L C-Reactive Protein 3.3 H* (<1.0) mg/dL Total Protein 8.3 H (6.4-8.2) g/dl Albumin 4.0 (3.4-5.0) g/dl Globulin 4.3 gm/dL Albumin/Globulin Ratio 0.9 L (1-2) Lipase 130 (73-393) U/L Urine Color Yellow (Yellow) Urine Appearance Clear (Clear) Urine pH 6.0 (5.0-8.0) Ur Specific [place] 1.020 (1.005-1.030) Urine Protein Negative (Negative) Urine Glucose (UA) Negative (Negative) Urine Ketones Negative (Negative) Urine Occult Blood Trace-intact H (Negative) Urine Nitrite Negative (Negative) Urine Bilirubin Negative (Negative) Urine Urobilinogen 0.2 (0.2-1.0) Ur Leukocyte Esterase Negative (Negative) Urine RBC 0-5 (0-5) /hpf Urine WBC 0-5 (0-5) /hpf Ur Squamous Epith Cells 5-10 H (0-5) /hpf Urine Bacteria Few (FEW) /hpf Urine Mucus Few (FEW) /hpf Meds: Medications Generic Name Dose Route Start Last Admin Trade Name Freq PRN Reason Stop Dose Admin Sodium Chloride 1,000 mls @ 125 mls/hr 08/03/20 13:30 08/03/20 13:53 Normal Saline IV 125 mls/hr ASDIRECTED VICKY Administration Sodium Chloride 10 ml 08/03/20 13:45 08/03/20 14:46 Saline Flush FLUSH 10 ml ONETIME PRN Administration IV FLUSH Discontinued Medications Generic Name Dose Route Start Last Admin Trade Name Freq PRN Reason Stop Dose Admin Diatrizoate Meglum/Diatrizoate Sod 120 ml 08/03/20 13:45 08/03/20 14:46 Gastrografin 37% PO 08/03/20 13:46 45 ml ONETIME ONE Administration Diphenhydramine HCl 12.5 mg 08/03/20 17:12 08/03/20 17:23 Benadryl IVPUSH 08/03/20 17:13 12.5 mg ONETIME ONE Administration Hydromorphone HCl 0.5 mg 08/03/20 13:30 08/03/20 13:53 Dilaudid IVPUSH 08/03/20 13:31 0.5 mg ONETIME ONE Administration Hydromorphone HCl 0.5 mg 08/03/20 15:13 08/03/20 15:27 Dilaudid IVPUSH 08/03/20 15:14 0.5 mg ONETIME ONE Administration Levofloxacin/Dextrose 750 mg/ 150 mls @ 100 mls/hr 08/03/20 15:15 08/03/20 15:29 Premix IV 08/03/20 16:44 100 mls/hr ONETIME ONE Administration Iopamidol 100 ml 08/03/20 13:45 08/03/20 14:46 Isovue-300 (61%) IVPUSH 08/03/20 13:46 100 ml ONETIME ONE Administration Metoclopramide HCl 7.5 mg 08/03/20 17:12 08/03/20 17:22 Reglan IVPUSH 08/03/20 17:13 7.5 mg ONETIME ONE Administration Metronidazole 500 mg 08/03/20 15:15 08/03/20 15:27 Flagyl PO 08/03/20 15:16 500 mg ONETIME ONE Administration Ondansetron HCl 4 mg 08/03/20 13:30 08/03/20 13:53 Zofran IVPUSH 08/03/20 13:31 4 mg ONETIME ONE Administration Ondansetron HCl 4 mg 08/03/20 16:39 08/03/20 16:53 Zofran IVPUSH 08/03/20 16:40 4 mg ONETIME ONE Administration - Radiology Interpretation Free Text/Narrative:: 55-year-old female presents to the ED for evaluation of gradually worsening left lower quadrant abdominal pain over the last week. No associated fever or chills. She was seen in the clinic 3 days ago and KUB suggest that she was constipated. She did take 6 ounces of MiraLAX and did have a couple of bowel movements but mostly water not a large amount of stool content. Over the last 48 hours the pain has now become constant and is getting worse. It is hurting to walk. No associated development of fever chills. Mildly decreased appetite. Exam reveals well localized pain to the left lower quadrant of just above the inguinal ligament laterally and suprapubically on exam. Patient also. Some relief of pain with voiding suggesting sigmoid diverticulitis recurrence. Plan will pursue CT PE of the abdomen pelvis with oral and IV contrast. Routine labs performed. No blood culture since she is afebrile. Urinalysis. IV will be normal saline at 125 mils per hour. Given Dilaudid 0.5 mg IV with Zofran 4 mg IV for nausea and pain relief. - Re-Assessments/Exams Free Text/Narrative Re-Assessment/Exam: 08/03/20 14:43 White blood cell count is elevated at 15.13 differentials revealing 72.7% neutrophils on the auto differential. Hemoglobin is 13.6 with hematocrit of 41.9. Platelet count 312,000. The smear does reveal less than 5% banded neutrophils. Sodium 142 with a potassium of 4.2. Chloride is 102 with a bicarb of 28. Anion gap slightly elevated at 16.2. BUN is 13 with a creatinine of 0.9 and a GFR greater than 60. Glucose is 121. Calcium is 9.1. Magnesium is 2.2. Bilirubin is 0.4 AST slightly elevated at 41 and ALT slightly elevated at 70. Alk phosphatase is 97. C-reactive protein is mildly elevated at 3.3. Total protein 8.3 with an albumin fraction of 4.0. Lipase normal at 130. Urinalysis shows trace of occult blood. The micro is pending 08/03/20 15:16 T of the abdomen and pelvis has been completed with oral and IV contrast. Visualized portions of the lower lung lewis are clear. Cardiac silhouette appears normal. She does have a mild hiatal hernia. Liver is homogeneous without any intraductal dilatation. Gallbladder is extremely small with no evidence of calcified gallstones. Pancreas appears normal spleen appears normal adrenal glands appear normal. Kidneys appear normal without any obstruction of the ureters. Uterus and ovaries are absent. Bladder is distended. Bowel reveals increased stool throughout the transverse colon. Several loops of small bowel are evident in the mid abdomen that are fluid- filled. There is evidence of acute diverticulitis of the sigmoid colon left lower quadrant of the abdomen adjacent to the left side of her bladder. I advised the patient's of the findings. The plan will be to start her on Levaquin 750 mg IV while in the ED. Also oral metronidazole 500 mg by mouth. She is requesting further analgesia. Will be given Dilaudid 0.5 mg IV. Tentatively she will be discharged home versus being admitted to hospital for diverticulitis. 08/03/20 17:15 She was complaining of nausea and I had administered Zofran 4 mg IV. I am presuming the nausea was precipitated by oral Flagyl as she only had soup for dinner. She had completed her IV Levaquin therapy and we were planning to discharge her home when she began to violently throw up. Will be given Reglan 7.5 mg IV with 12.5 mg of Benadryl to prevent a dystonic reaction interaction with her Prozac which could precipitate a dystonic reaction. 08/03/20 18:15 She is feeling much better.No further nausea. Discharged to home on Levaquin 500 mg per ora once daily for the next 12 days. I prolonged the course of Levaquin because she has had a second bout of diverticulitis within a 2 and one half-month period of time. Also of course take Flagyl 500 mg 3 times daily for 7 days. She will return if pain worsens or she develops nausea and vomiting or temperature greater than 101 degrees. Departure - Departure Time of Disposition: 16:59 Disposition: Home, Self-Care 01 Condition: Fair Clinical Impression: Diverticulitis of sigmoid colon Abdominal pain Qualifiers: Abdominal location: left lower quadrant Qualified Code(s): R10.32 - Left lower quadrant pain - Discharge Information *PRESCRIPTION DRUG MONITORING PROGRAM REVIEWED*: Not Applicable *COPY OF PRESCRIPTION DRUG MONITORING REPORT IN PATIENT VIANNEY: Not Applicable Prescriptions: metroNIDAZOLE [Flagyl] 500 mg PO Q8H #20 tab levoFLOXacin [Levaquin] 500 mg PO DAILY #12 tab oxyCODONE HCl/Acetaminophen [Percocet 5-325 mg Tablet] 1 - 2 each PO Q4H PRN #12 tablet PRN Reason: pain relief. Ondansetron [Zofran] 4 mg BUCCAL Q6H PRN #10 tab PRN Reason: nausea or vomiting Instructions: Diverticulitis, Abdominal Pain, Adult, [id number] Referrals: Salome Huston MD [Primary Care Provider] - Forms: ED Department Discharge Additional Instructions: Evaluation in the emergency room today in regards to development of left lower quadrant abdominal pain gradually over the last week. No improvement after bowel cleanse 3 days ago. Pain is in fact worsened over the last 48 hours. No associated fever or chills identified by you. Examination does reveal tenderness along the distribution of the left lower colon and sigmoid colon in the abdomen. Lab test revealed an elevated white count with a mild left shift suggesting an infective process. CT scan with oral contrast of the abdomen and pelvis was performed and confirms an area of sigmoid diverticulitis exactly where you were having your pain. You were started on antibiotic therapy in the emergency room with Levaquin 750 mg given IV and oral metronidazole or Flagyl 500 mg by mouth. There is some concern this may have produced her nausea. You will need to continue Levaquin 500 mg once daily for the next 12 days to clear up infection. You will need Flagyl 500 mg 3 times daily for the next week with the next dose due at 11 PM tonight. May take Zofran under the tongue 4 mg every 4-6 hours as necessary for relief of nausea or vomiting. Pain medication Percocet/5/325 mg 1 or 2 tablets every 4-6 hours as necessary for pain relief with food in your stomach. Into medical care if you develop a fever greater than 101 degrees. Also if you continue to vomit. Also if your left lower quadrant pain fails to markedly improve over the next 48 to 72 hours. Sepsis Event Note (ED) - Evaluation Sepsis Screening Result: No Definite Risk - Focused Exam Vital Signs: Vital Signs Temp Pulse Resp BP Pulse Ox 08/03/20 12:58 36.6 C 78 16 144/81 H 98 - My Orders Last 24 Hours: My Active Orders 08/03/20 13:30 Sodium Chloride 0.9% [Normal Saline] 1,000 ml IV ASDIRECTED 08/03/20 13:45 Sodium Chloride 0.9% [Saline Flush] 10 ml FLUSH ONETIME PRN - Assessment/Plan Last 24 Hours: My Active Orders 08/03/20 13:30 Sodium Chloride 0.9% [Normal Saline] 1,000 ml IV ASDIRECTED 08/03/20 13:45 Sodium Chloride 0.9% [Saline Flush] 10 ml FLUSH ONETIME PRN
[2020-08-03] MEDS ORDERED: HYDROmorphone 0.5 MG/0.5 ML Syringe IVPUSH ONE ×2 (13:30→15:13)
[2020-08-03] MEDS ORDERED: Sodium Chloride 0.9% 1,000 ML IV SCH (13:30)
[2020-08-03] MEDS ORDERED: Ondansetron 4 MG/2 ML SDV IVPUSH ONE ×2 (13:30→16:39)
[2020-08-03] MEDS ORDERED: Iopamidol 612 MG/ML 100 ML Bottle IVPUSH ONE (13:45)
[2020-08-03] MEDS ORDERED: Diatrizoate Meglumine/Diatrizoate Sodium 37% 120 ML Bottle PO ONE (13:45)
[2020-08-03] MEDS: Sodium Chloride 0.9% 10 ML Syringe FLUSH PRN ×2 (14:06→14:46)
--- NOTE | 2020-08-03 15:10 | CT ---
CT abdomen and pelvis Technique: Multiple axial sections were obtained from above the dome of the diaphragm inferiorly through the pubic symphysis. Intravenous and oral contrast was utilized. Delayed images were obtained through the bladder. Reconstructed coronal and sagittal images were also obtained. Comparison: Prior CT abdomen and pelvis study of 05/23/20. Findings: Inflammatory change is seen around the sigmoid colon in an area of diverticulosis. This is similar to previous exam. Findings are compatible with diverticulitis. Visualized lung bases show nothing acute. Liver contains no focal parenchymal abnormality. Spleen appears within normal limits. Small amount of accessory splenic tissue is seen off the inferior spleen. Adrenal glands show no nodule. Pancreas shows no abnormality. Gallbladder is fairly shrunken but shows no calcified gallstones. Abdominal aorta shows no aneurysm. No retroperitoneal adenopathy or mesenteric abnormalities are seen. No pelvic mass or adenopathy is seen. Delayed images show contrast within the distal ureters and within the bladder. Bone window settings were reviewed. Scattered degenerative change is seen within the spine. No acute osseous finding is seen. Slight increased stool is noted within the colon. Impression: 1. Findings compatible with diverticulitis within the sigmoid colon which is in a similar location as to previous diverticulitis on previous CT exam. 2. Other findings believed to be incidental as noted above. No other acute abnormality is seen. Diagnostic code #3
[2020-08-03] MEDS ORDERED: metroNIDAZOLE 500 MG Tab PO ONE (15:15)
[2020-08-03] MEDS ORDERED: Levofloxacin/Dextrose 5%-Water 750 MG in Premix Bag 1 BAG IV ONE (15:15)
[2020-08-03] MEDS ORDERED: Metoclopramide 10 MG/2 ML SDV IVPUSH ONE (17:12)
[2020-08-03] MEDS ORDERED: diphenhydrAMINE 50 MG/ML SDV IVPUSH ONE (17:12)
== END 2020-08-03 18:30 | disposition home or self-care (01) ==
LOC: JD.ED 12:50
DX: K57.32 Diverticulitis of large intestine without perforation or abscess without bleeding (principal); Z79.899 Other long term (current) drug therapy
CPT/HCPCS: 36415; 74177; 80053; 81001; 83690; 83735; 85025; 86140; 96365; 96375; 96376; 99284; A9270; J1170; J1200; J1956; J2405; J2765; J7030; Q9963; Q9967

== ENCOUNTER 2024-03-14 05:35 | Emergency (ER) | payer OTHER ==
[2024-03-14] MEDS ORDERED: Naloxone 0.4 MG/ML SDV IVPUSH PRN ×2 (05:56→07:48)
[2024-03-14 06:09] LABS: BASOPHILS ABSOLUTE AUTO 0.1 K/mm3 (0.0-0.2); BASOPHILS PERCENT AUTO 0.4 % (0.0-1.0); EOSINOPHILS ABSOLUTE AUTO 0.2 K/mm3 (0.0-0.4); EOSINOPHILS PERCENT AUTO 1.1 % (0.0-6.0); HEMATOCRIT 38.3 % (37.0-47.0); HEMOGLOBIN 13.1 gm/dl (12.0-16.0); IMMATURE GRAN ABSOLUTE AUTO 0.06 K/mm3 (0.00-0.05); IMMATURE GRAN PERCENT AUTO 0.4 % (0.0-0.4); MEAN CORPUSCULAR HGB CONC 34.2 g/dl (32.0-36.0); MEAN CORPUSCULAR VOLUME 90.8 fl (83.0-99.0); MEAN PLATELET VOLUME 10.4 fl (9.4-12.3); MONOCYTES ABSOLUTE AUTO 1.2 K/mm3 (0.0-0.8); MONOCYTES PERCENT AUTO 8.5 % (0.0-8.0); NEUTROPHILS ABSOLUTE AUTO 10.8 K/mm3 (1.8-7.7); NEUTROPHILS PERCENT AUTO 75.6 % (41.0-71.0); PLATELET COUNT,PLT 294 K/mm3 (150-400); RED BLOOD CELL COUNT 4.22 M/mm3 (4.10-5.30); WHITE BLOOD CELL COUNT,WBC 14.27 K/mm3 (3.9-11.3)
[2024-03-14] MEDS: Ondansetron 4 MG/2 ML SDV IVPUSH ONE (06:10)
[2024-03-14] MEDS: Sodium Chloride 0.9% 1,000 ML IV ONE (06:10)
[2024-03-14] MEDS: Morphine 4 MG/ML Syringe IVPUSH ONE ×2 (06:11→08:26)
[2024-03-14 06:31] LABS: A/G RATIO 1.1 (1-2); ALBUMIN 3.8 g/dl (3.4-5.0); ANION GAP 14.2 (5-15); BILIRUBIN TOTAL 0.9 mg/dL (0.2-1.0); BUN/CREATININE RATIO 11.4 (14-18); CALCIUM 9.1 mg/dL (8.5-10.1); CREATININE 0.7 mg/dL (0.55-1.02); EST CRCL DRUG DOSING (CG) 81.01 mL/min; MAGNESIUM 1.9 mg/dL (1.8-2.4); POTASSIUM,K 4.2 mEq/L (3.5-5.1); PROTEIN TOTAL,TP 7.4 g/dl (6.4-8.2)
[2024-03-14 06:53] LABS: APPEARANCE,URINE CLEAR (Clear); BILIRUBIN,URINE NEGATIVE (Negative); COLOR,URINE YELLOW (Yellow); GLUCOSE,URINE NEGATIVE (Negative); KETONES,URINE NEGATIVE (Negative); LEUKOCYTE ESTERASE,URINE NEGATIVE (Negative); NITRITE,URINE NEGATIVE (Negative); OCCULT BLOOD,URINE NEGATIVE (Negative); PH,URINE 7.5 (5.0-8.0); PROTEIN,URINE NEGATIVE (Negative); UROBILINOGEN,URINE 0.2 (0.2-1.0)
[2024-03-14] MEDS: Iopamidol 612 MG/ML 100 ML Bottle IVPUSH ONE (07:20)
[2024-03-14] MEDS: Sodium Chloride 0.9% 10 ML Syringe FLUSH ONE (07:20)
== END 2024-03-14 10:44 | disposition home or self-care (01) ==
LOC: JD.ED 05:35
DX: K57.32 Diverticulitis of large intestine without perforation or abscess without bleeding (principal); Z79.899 Other long term (current) drug therapy; Z86.16 Personal history of COVID-19
CPT/HCPCS: 36415; 74177; 80053; 81003; 83605; 83735; 85025; 96361; 96374; 96375; 96376; 99284; J2270; J2405; J3490; J7030; Q9967